=== PATIENT | female | born 1995 | race Caucasian/White ===

== ENCOUNTER 2017-05-07 15:22 | Inpatient (IN) | payer OTHER ==
[~2017-05-07] VITALS: Ht 147.3 cm; Wt 78.4 kg
[~2017-05-07 15:22] MED LIST: CRY28 PO; ENAL20TA PO; HYDR12.56 PO; LEVO75TA5 PO; SNG10 PO
[2017-05-07] MEDS ORDERED: SODIUM CHLORIDE 0.9% 1000ML 1,000 ML IV SCH (15:45)
[2017-05-07] MEDS ORDERED: LEVO88TA3 PO (16:01)
[2017-05-07] MEDS ORDERED: METO25TA56 PO (16:01)
[2017-05-07 16:23] LABS: BASO % 0.3 %; BASO ABS # 0.04 K/uL (0-0.2); COMPLETE YES; EOS % 0.6 %; HEMATOCRIT 45.7 % (37-47); IG% 0.9 %; LYMPH % 12.6 %; LYMPH ABS # 1.63 K/uL (1.2-3.4); MEAN CELL VOLUME 85.7 fL (80-100); MEAN CORPUSCULAR HEMOGLOBIN 29.1 pg (25-34); MEAN CORPUSCULAR HGB CONC 33.9 g/dl (32-36); MEAN PLATELET VOLUME 9.3 fL (7.4-10.4); MONO % 7.2 %; NEUT % 78.4 %; PLATELET COUNT 425 K/uL (130-400); RED BLOOD COUNT 5.33 M/uL (4.2-5.4); WHITE BLOOD COUNT 12.93 K/uL (4.8-10.8)
[2017-05-07 16:26] LABS: URINE APPEARANCE CLEAR (CLEAR); URINE BILIRUBIN NEG (NEG); URINE COLOR YELLOW; URINE EPITHELIAL CELL AUTO 0-5 /lpf (0-5); URINE NITRITE NEG (NEG); URINE SPECIFIC GRAVITY 1.006 (1.000-1.030); UROBILINOGEN NEG (NEG); ZZUR CULT IF INDIC CLEAN CATCH NO
[2017-05-07 16:27] LABS: MANUAL MICROSCOPIC REQUIRED? NO; REVIEW REQ? NO
[2017-05-07 16:33] LABS: PARTIAL THROMBOPLASTIN RATIO 1.5; PROTHROMBIN TIME (PATIENT) 10.5 SECONDS (9.0-12.0)
--- NOTE | 2017-05-07 16:36 | DIAGNOSTIC IMAGING REPORT ---
CT HEAD WITHOUT CONTRAST (CT) CLINICAL HISTORY: Stroke COMPARISON STUDY: 06/07/2015 TECHNIQUE: Axial CT of the brain is performed from the vertex to the skull base. IV contrast was not administered for this examination. A dose lowering technique was utilized adhering to the principles of ALARA. CT DOSE: 537.48 mGy.cm FINDINGS: No intra or extra-axial mass lesions are visualized. There is no acute hemorrhage. There is no midline shift. 3 shunt catheters are visualized. The right parieto-occipital shunt catheter terminates in the expected location of the right frontal horn. The left parietal occipital shunt catheter terminates either within the third ventricle or thalamus. There is a left frontal shunt catheter which terminates either within the left lateral ventricle or pelvis. There are slitlike ventricles, and the patient may be over shunted. Clinical correlation this regard is advocated. Since the prior study, the patient has developed hypodensity within the left centrum semiovale. IMPRESSION: 1. Marked interval decrease in the size of the ventricles, which are currently slitlike. This could indicate over shunting. Clinical correlation this regard is advocated. 2. Interval development of left hemispheric hypodensity, predominantly involving the left centrum semiovale but extending to the left frontoparietal cortex. This a nonspecific finding which could be ischemic. An MRI could be obtained in follow-up as deemed clinically indicated. Electronically signed by: Félix Dos Santos M.D. 05/07/2017 4:34 PM Dictated Date/Time: 05/07/2017 4:23 PM
[2017-05-07 16:41] LABS: BLOOD UREA NITROGEN 10 mg/dl (7-18); BUN/CREATININE RATIO 8.6 (10-20); CALCIUM 9.4 mg/dl (8.5-10.1); CARBON DIOXIDE 22 mmol/L (21-32); CHLORIDE 108 mmol/L (98-107); GLUCOSE 99 mg/dl (70-99); POTASSIUM 4.4 mmol/L (3.5-5.1); SODIUM 138 mmol/L (136-145)
--- NOTE | 2017-05-07 17:04 | EMERGENCY ROOM VISIT NOTE ---
History First contact with patient: 15:34 Chief Complaint: NEURO SYMPTOMS Stated Complaint: FACE PROBLEM Nursing Triage Summary: Patient c/o of right facial drooping since Thursday. Patient has hx of neurofibromitosis and has 2 brain shunts for hydrocephalus. Denies hx. of Stein's palsy History of Present Illness The patient is a 22 year old female who presents to the Emergency Room via private vehicle accompanied by parents with complaints of "face problems". The parents state that the patient developed right sided facial droop back in November, but had resolved. This past Thursday the patient woke up, and the right side of her face was completely drooped. Her smile was asymmetric. They became concerned, and no correspondence via email with Noris Salas. The parents state that they were recommended to follow-up with the PCP, or if worse to the ER. They stated MRI was scheduled today, however the insurance company declined the MRI. They then came here for further evaluation and management. There is associated nausea. The patient denies any fevers, chills, chest pain, shortness of breath, neck pain. Review of Systems A complete 10-point Review of Systems was discussed with the patient, with pertinent positives and negatives listed in the History of Present Illness. All remaining Review of Systems questions can be considered negative unless otherwise specified. Past Medical/Surgical History Medical Problems: (1) HTN (hypertension) (2) Hydrocephalus (3) Neurofibromatosis (4) Stroke Surgical Problems: (1) S/P CONSULTANT shunt Family History Cancer Heart disease Social History Smoking Status: Never Smoker Alcohol Use: none Marital Status: single Housing Status: lives with family Occupation Status: unemployed Current/Historical Medications Scheduled Enalapril Maleate (Enalapril Maleate), 20 MG PO DAILY Ethinyl Estradiol/Norgestrel (Cryselle-28), 1 TAB PO DAILY Levothyroxine Sodium (Levothyroxine Sodium), 88 MCG PO QAM Metoprolol Tartrate (Lopressor) (Lopressor), 25 MG PO BID Scheduled PRN Montelukast Sod (Montelukast Sodium), 10 MG PO DAILY PRN for ALLERGIES Physical Exam Vital Signs Date Time Temp Pulse Resp B/P (MAP) Pulse Ox O2 Delivery O2 Flow Rate FiO2 05/07/17 19:39 128 17 121/82 96 Room Air 05/07/17 17:31 137/87 05/07/17 17:22 128 17 128/82 96 Room Air 05/07/17 17:01 122/83 05/07/17 16:52 125 20 96 05/07/17 16:41 121 05/07/17 16:39 121 18 114/83 98 Room Air 05/07/17 16:37 114/83 05/07/17 16:00 98 Room Air 05/07/17 15:28 36.6 124 18 127/74 98 Room Air Physical Exam VITAL SIGNS - Vital signs and nursing notes were reviewed. GENERAL -22-year-old female appearing her stated age who is in no acute distress. Communicates well with provider and answers questions appropriately. SKIN - Without rashes. No petechial rash. HEAD - NC/AT. EYES - PERRL with EOMI bilaterally. Sclera anicteric. Palpebral conjunctiva pink and moist with no injection noted. There is asymmetric eyebrow lifting. The right eyebrow does not raise. EARS - No deformities of external structures noted on gross examination bilaterally. No pain elicited with palpation of the tragus bilaterally. External auditory canals without discharge or otorrhea. Tympanic membranes pearly ramires without retraction or bulging. No fluid or purulent material visualized behind the TM. Handle of malleus, umbo, cone of light, pars tensa/ flaccid all easily visualized. NOSE - Midline and without cyanosis. No epistaxis or purulent drainage noted. Septum midline without deviation or septal hematoma noted. MOUTH/OROPHARYNX - Without perioral cyanosis. Buccal mucosa pink and moist and without leukoplakia. Tongue midline with equal elevation of palate bilaterally. No tonsillar hypertrophy, erythema, or exudates noted. Fair dentition noted. There is right sided mouth drooping noted. There is asymmetric smiling, with normal smile on the left. NECK - Neck with FROM. Supple to palpation. No lymphadenopathy noted. No nuchal rigidity. No meningismus. LUNGS - Chest wall symmetric without accessory muscle use, intercostals retractions, or central cyanosis. Normal vesicular breath sounds CTA B/L. No wheezes, rales, or rhonchi appreciated. CARDIAC - RRR with S1/S2. No murmur, rubs, or gallops appreciated. EXTREMITIES - No clubbing or peripheral cyanosis. No pretibial edema present. +5 /5 strength noted in UE/LE bilaterally. No neurovascular deficits appreciated upon examination. NEUROLOGIC - Cranial nerves II through XII grossly intact, except the right facial nerve. Sensory intact to light touch throughout. PSYCH - A&O.Pt is very pleasant and interacts well with examiner. Medical Decision & Procedures ER Provider Diagnostic Interpretation: CT HEAD WITHOUT CONTRAST (CT) CLINICAL HISTORY: Stroke COMPARISON STUDY: 06/07/2015 TECHNIQUE: Axial CT of the brain is performed from the vertex to the skull base. IV contrast was not administered for this examination. A dose lowering technique was utilized adhering to the principles of ALARA. CT DOSE: 537.48 mGy.cm FINDINGS: No intra or extra-axial mass lesions are visualized. There is no acute hemorrhage. There is no midline shift. 3 shunt catheters are visualized. The right parieto-occipital shunt catheter terminates in the expected location of the right frontal horn. The left parietal occipital shunt catheter terminates either within the third ventricle or thalamus. There is a left frontal shunt catheter which terminates either within the left lateral ventricle or pelvis. There are slitlike ventricles, and the patient may be over shunted. Clinical correlation this regard is advocated. Since the prior study, the patient has developed hypodensity within the left centrum semiovale. IMPRESSION: 1. Marked interval decrease in the size of the ventricles, which are currently slitlike. This could indicate over shunting. Clinical correlation this regard is advocated. 2. Interval development of left hemispheric hypodensity, predominantly involving the left centrum semiovale but extending to the left frontoparietal cortex. This a nonspecific finding which could be ischemic. An MRI could be obtained in follow-up as deemed clinically indicated. Electronically signed by: Félix Dos Santos M.D. 05/07/2017 4:34 PM Dictated Date/Time: 05/07/2017 4:23 PM BRAIN COMBO CLINICAL HISTORY: Right facial droop neurological compromise COMPARISON STUDY: 05/29/2006. CT 05/07/2017 TECHNIQUE: Utilizing a 1.5 Ursula magnet and dedicated coil, multiplanar, multiecho imaging of the brain was performed pre and postcontrast administration. IV administration of 7.5 mL of Gadavist contrast was uneventful. FINDINGS: Diffusion-weighted images show several small petechial foci of acute ischemic frame changer the left parietal convexity. This is best seen transaxial image 17 and a clinically transaxial image 19. There are 4 components of moderate chronic small vessel change. The ventricular system again is decompressed. The patient demonstrates considerable cystic change in the region of the REMEDIATION CONSULTANT all this is diminished from the prior exam. There is no midline shift. A postprocedural ventricular decompression is again noted. Postcontrast images are negative for an enhancing process. Components of chronic small vessel change are present. IMPRESSION: Several small punctate foci of acute ischemic change left parietal cortex. No evidence for midline shift. Ventricular system is now decompressed. No abnormal postcontrast enhancement The above report was generated using voice recognition software. It may contain grammatical, syntax or spelling errors. Electronically signed by: Saji Rivero M.D. 05/07/2017 6:27 PM Dictated Date/Time: 05/07/2017 6:22 PM Laboratory Results 05/07/17 16:00 Red Blood Count 5.33, Mean Corpuscular Volume 85.7, Mean Corpuscular Hemoglobin 29.1, Mean Corpuscular Hemoglobin Concent 33.9, Mean Platelet Volume 9.3, Neutrophils (%) (Auto) 78.4, Lymphocytes (%) (Auto) 12.6, Monocytes (%) (Auto) 7.2, Eosinophils (%) (Auto) 0.6, Basophils (%) (Auto) 0.3, Neutrophils # (Auto) 10.13, Lymphocytes # (Auto) 1.63, Monocytes # (Auto) 0.93, Eosinophils # (Auto) 0.08, Basophils # (Auto) 0.04 05/07/17 16:00 Test 05/07/17 16:00 05/07/17 16:09 White Blood Count 12.93 K/uL (4.8-10.8) Red Blood Count 5.33 M/uL (4.2-5.4) Hemoglobin 15.5 g/dL (12.0-16.0) Hematocrit 45.7 % (37-47) Mean Corpuscular Volume 85.7 fL (80-100) Mean Corpuscular Hemoglobin 29.1 pg (25-34) Mean Corpuscular Hemoglobin Concent 33.9 g/dl (32-36) Platelet Count 425 K/uL (130-400) Mean Platelet Volume 9.3 fL (7.4-10.4) Neutrophils (%) (Auto) 78.4 % Lymphocytes (%) (Auto) 12.6 % Monocytes (%) (Auto) 7.2 % Eosinophils (%) (Auto) 0.6 % Basophils (%) (Auto) 0.3 % Neutrophils # (Auto) 10.13 K/uL (1.4-6.5) Lymphocytes # (Auto) 1.63 K/uL (1.2-3.4) Monocytes # (Auto) 0.93 K/uL (0.11-0.59) Eosinophils # (Auto) 0.08 K/uL (0-0.5) Basophils # (Auto) 0.04 K/uL (0-0.2) RDW Standard Deviation 42.2 fL (36.4-46.3) RDW Coefficient of Variation 13.4 % (11.5-14.5) Immature Granulocyte % (Auto) 0.9 % Immature Granulocyte # (Auto) 0.12 K/uL (0.00-0.02) Prothrombin Time 10.5 SECONDS (9.0-12.0) Prothromb Time International Ratio 1.0 (0.9-1.1) Activated Partial Thromboplast Time 39.0 SECONDS (21.0-31.0) Partial Thromboplastin Ratio 1.5 Anion Gap 8.0 mmol/L (3-11) Est Creatinine Clear Calc Drug Dose 72.9 ml/min Estimated GFR () 82.0 Estimated GFR (Non- 70.7 BUN/Creatinine Ratio 8.6 (10-20) Calcium Level 9.4 mg/dl (8.5-10.1) Magnesium Level 2.0 mg/dl (1.8-2.4) Total Bilirubin 0.2 mg/dl (0.2-1) Direct Bilirubin < 0.1 mg/dl (0-0.2) Aspartate Amino Transf (AST/SGOT) 12 U/L (15-37) Alanine Aminotransferase (ALT/SGPT) 23 U/L (12-78) Alkaline Phosphatase 78 U/L (45-117) Total Creatine Kinase 30 U/L (26-192) Creatine Kinase MB < 0.5 ng/ml (0.5-3.6) Creatine Kinase MB Ratio (0-3.0) Troponin I < 0.015 ng/ml (0-0.045) Total Protein 7.7 gm/dl (6.4-8.2) Albumin 4.0 gm/dl (3.4-5.0) Thyroid Stimulating Hormone (TSH) 2.410 uIu/ml (0.300-4.500) Lyme Disease IgG Antibody NEG (NEG) Lyme Disease IgM Antibody NEG (NEG) Urine Color YELLOW Urine Appearance CLEAR (CLEAR) Urine pH 7.0 (4.5-7.5) Urine Specific [place] 1.006 (1.000-1.030) Urine Protein NEG (NEG) Urine Glucose (UA) NEG (NEG) Urine Ketones NEG (NEG) Urine Occult Blood 3+ (NEG) Urine Nitrite NEG (NEG) Urine Bilirubin NEG (NEG) Urine Urobilinogen NEG (NEG) Urine Leukocyte Esterase NEG (NEG) Urine WBC (Auto) 1-5 /hpf (0-5) Urine RBC (Auto) 10-30 /hpf (0-4) Urine Hyaline Casts (Auto) 0 /lpf (0-5) Urine Epithelial Cells (Auto) 0-5 /lpf (0-5) Urine Bacteria (Auto) NEG (NEG) Medications Administered Medications (Trade) Dose Ordered Sig/Colt Route Start Time Stop Time Status Last Admin Dose Admin Sodium Chloride 1,000 ml @ 50 mls/hr Q20H IV 05/07/17 15:45 05/07/17 19:58 DC 05/07/17 16:15 50 MLS/HR Aspirin (Aspirin Chew) 324 mg NOW STAT PO 05/07/17 19:46 05/07/17 19:49 DC 05/07/17 20:15 324 MG Sodium Chloride 1,000 ml @ 500 mls/hr Q2H STAT IV 05/07/17 19:57 05/07/17 21:56 DC 05/07/17 20:15 500 MLS/HR Medical Decision Patient was seen and evaluated as above. After obtaining a thorough history and physical examination IV access was initiated, and the above workup was performed. The patient presents to us today with right-sided facial droop. They state that this started on Thursday. There apparently was correspondence via email with [facility]. [facility], [facility]. The patient was directed to the family doctor, and then had an MRI scheduled for today. Insurance company apparently declined this MRI, her symptoms have worsened therefore they came here for evaluation. On my examination, there is exquisite right-sided facial droop. Whether or not this is coming for Stein's palsy is not clear on examination, therefore I will not delay and a stroke workup was initiated. CT of the head reveals marked interval decrease in size of the ventricles, and interval development of left hemispheric hypodensity. An MRI was then recommended as clinically indicated. I discussed the case with my attending, and subsequently the on-call neurologist. I spoke with Dr. Workman, of [facility] neurology regarding the case. This phone call took place at 5:08 PM. I discussed the CT findings with Dr. Workman. She recommended pursuing the MRI. I then spoke with Dr. Workman and Noris Salas here, and Dr. Workman reviewed the images from the [employer] system, indicating that the shunt/ventricle changes appeared to be since her previous surgery. The new hypodensity at this time was unclear. She felt that the facial droop may be secondary to Shelley palsy based upon my description of the patients examination. The MRI was pursued with and without contrast. This was after verifying with the radiologist that this was the most appropriate study. MRI was obtained, with results as above. I then called Dr. Workman back, at 7:01 PM with the MRI results indicating a new foci of acute ischemic change . She noted that she would review with prior studies to see if this new finding of several small punctate foci of acute ischemic change was new. I was then called back at 7:37 PM, and she indicated that this indeed was likely new. She recommend a carotid ultrasound, coagulation workup, as well as aspirin with admission to our facility and the patient would be seen by neurology tomorrow. I then discussed the case with the hospitalist, who accepted the admission. Patient's symptoms have been ongoing for approximately 2 days, therefore TPA is contraindicated. EKG reveals sinus tachycardia, rate of 119 bpm. No ectopy or ischemic change. In the evaluation and treatment this patient the following differential diagnoses were entertained: CVA, TIA, Stein's palsy, sepsis, among others. Impression Primary Impression: Stroke Departure Information Referrals Ria Larson M.D. (PCP) Patient Instructions My [facility]
[2017-05-07 17:11] LABS: LYME DISEASE AB IGG NEG (NEG); LYME DISEASE AB IGM NEG (NEG)
[2017-05-07] MEDS ORDERED: GADAVIST IV PRN (18:15)
--- NOTE | 2017-05-07 18:28 | DIAGNOSTIC IMAGING REPORT ---
BRAIN COMBO CLINICAL HISTORY: Right facial droop neurological compromise COMPARISON STUDY: 05/29/2006. CT 05/07/2017 TECHNIQUE: Utilizing a 1.5 Ursula magnet and dedicated coil, multiplanar, multiecho imaging of the brain was performed pre and postcontrast administration. IV administration of 7.5 mL of Gadavist contrast was uneventful. FINDINGS: Diffusion-weighted images show several small petechial foci of acute ischemic change management the left parietal convexity. This is best seen transaxial image 17 and a clinically transaxial image 19. There are 4 components of moderate chronic small vessel change. The ventricular system again is decompressed. The patient demonstrates considerable cystic change in the region of the DOPE MIXER all this is diminished from the prior exam. There is no midline shift. A postprocedural ventricular decompression is again noted. Postcontrast images are negative for an enhancing process. Components of chronic small vessel change are present. IMPRESSION: Several small punctate foci of acute ischemic change left parietal cortex. No evidence for midline shift. Ventricular system is now decompressed. No abnormal postcontrast enhancement The above report was generated using voice recognition software. It may contain grammatical, syntax or spelling errors. Electronically signed by: Saji Rivero M.D. 05/07/2017 6:27 PM Dictated Date/Time: 05/07/2017 6:22 PM
[2017-05-07] MEDS ORDERED: ASPIRIN 324 MG CHEW PO STA (19:46)
[2017-05-07] MEDS ORDERED: SODIUM CHLORIDE 0.9% 1000ML 1,000 ML IV STA (19:57)
[2017-05-07] MEDS ORDERED: MONTELUKAST SOD 10 MG TAB PO PRN (20:00)
[2017-05-07 20:28] LABS: ALKALINE PHOSPHATASE 78 U/L (45-117); ALT/SGPT 23 U/L (12-78); AST/SGOT 12 U/L (15-37)
[2017-05-07] MEDS ORDERED: MoRPHine SULFATE 2 MG/ML CARP IV PRN (20:45)
[2017-05-07] MEDS ORDERED: ONDANSETRON INJ 2 MG/ML 2 ML VIAL IV PRN (20:45)
[2017-05-07] MEDS ORDERED: PHARMACIST DISCHARGE MED REC CONSULT PRN (20:45)
[2017-05-07] MEDS ORDERED: ACETAMINOPHEN 325 MG TAB PO PRN (20:45)
[2017-05-07] MEDS ORDERED: OXYCODONE/ACETAMINOPHEN 5-325 TAB PO PRN (20:45)
[2017-05-07] MEDS ORDERED: NITROGLYCERIN 0.4 MG SL PER TAB CHARGE SL PRN (20:45)
[2017-05-07 21:58] VITALS: BP 118/70; PULSE 135; TEMP 37.1; O2SAT 96; Ht 147.3 cm; Wt 78.4 kg
[2017-05-07] MEDS ORDERED: ARTIFICIAL TEARS OP SOLN OPR SCH ×2 (22:00)
[2017-05-07] MEDS ORDERED: SODIUM CHLORIDE 0.9% 1000ML 1,000 ML IV ONE (22:15)
--- NOTE | 2017-05-07 22:29 | DIAGNOSTIC IMAGING REPORT ---
ULTRASOUND OF THE CAROTID ARTERIES CLINICAL HISTORY: Acute stroke. Hx neurofibromatosis COMPARISON STUDY: None. TECHNIQUE: Real-time, grayscale, and color Doppler sonography of the carotid arteries was performed. Imaging reviewed in the transverse and longitudinal planes. NASCET criteria was utilized for stenosis calcification. FINDINGS: There is no significant atherosclerotic plaque present . The peak systolic velocity within the right internal carotid artery is 108 cm/sec. The systolic velocity ratio of right internal to common carotid artery is 0.5. The peak systolic velocity within the left internal carotid artery is 92 cm/sec. The systolic velocity ratio left internal to common carotid artery is 0.5. Antegrade flow is seen in the vertebral arteries. The external carotid arteries are patent. Blood pressure in the right arm measured 131 mm/Hg. Blood pressure in the left arm measured 118 mm/Hg. IMPRESSION: No evidence of hemodynamically significant carotid stenosis. Electronically signed by: Félix Dos Santos M.D. 05/07/2017 10:28 PM Dictated Date/Time: 05/07/2017 10:25 PM
[2017-05-07] MEDS ORDERED: METOPROLOL TARTRATE 25 MG TAB PO ONE (22:40)
[2017-05-07] MEDS: ARTIFICIAL TEARS OP OINT 3.5 GM TUBE OPR SCH (23:06)
[2017-05-07] MEDS: ENOXAPARIN 40 MG/0.4 ML SYR SC SCH (23:07)
[2017-05-07 23:34] VITALS: BP 113/75; PULSE 112; TEMP 37.1; O2SAT 96
[2017-05-08] MEDS ORDERED: SODIUM CHLORIDE 0.9% 1000ML 1,000 ML IV SCH
[2017-05-08 03:49] VITALS: BP 112/73; PULSE 102; TEMP 37.1; O2SAT 98
--- NOTE | 2017-05-08 04:08 | HISTORY & PHYSICAL EXAMINATION ---
DATE OF ADMISSION: 05/07/2017 PRIMARY CARE PHYSICIAN: Dr. Larson. CHIEF COMPLAINT: Right facial droop. HISTORY OF PRESENT ILLNESS: History obtained from patient, records, family. Medical history significant for neurofibromatosis type I, obstructive hydrocephalus status post shunt placement/revision, hypertension, hypothyroidism , chronic tachycardia secondary to autonomic dysfunction as per records. Patient was 1 years old when she was found to have obstructive hydrocephalus. Subsequently had shunt placement at [facility]. Multiple shunt revisions the last one was at [facility] about a year ago by Dr. Molina. A few months ago, she had transient right-sided facial asymmetry. MRI of the brain and face from January 2017 as follows : 1.. Interval reduction of hydrocephalus. Stable position of bilateral PAINT ROLLER ASSEMBLER shunt catheters as described above. 2. With reduction of hydrocephalus there is improved visualization of a cystic lesion adjacent to the superior margin of the quadrigeminal plate and posterior margin of the left thalamus at the midline, with partial effacement of the 3rd ventricle. 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 3. Slight interval decrease in size of the heterogeneous T2 hyperintense lesion in the right caudal thalamic groove, which may represent a focus of dysplasia. A linear region of T2 hyperintensity in the left cerebral peduncle extending into the posterior limb of the internal capsule is slightly more conspicuous, and may reflect changes in the myelin pattern associated with NF 1 or a focus of dysplasia, and attention could be directed this finding at the time of follow-up imaging to exclude progression. There is no enhancement of these lesions. 4. Interval increase in T2 hyperintensity with mild volume loss of the parietal white matter and adjacent cortex, of uncertain etiology. This is new since the MRI from 05/28/2015. If an outside MRI has been performed in the meantime, and could be scanned into our PACS, a comparison addendum will be provided. Otherwise, a short interval follow-up brain MRI with contrast is recommended in 3 months to exclude progression. 5. MRI of the face shows no abnormality of the brainstem or cranial nerves, including the course of the facial nerve. Two days ago, the patient was noted to have recurrence of facial droop in involving the right half of her face. Incomplete R eyelid closure noted. No headache, no nausea, no vomiting, no chest pain, no shortness of breath. Patient's mother in correspondence with [facility]. As per correspondence with patient's mother, Neurology recommended PCP visit, and possible Neurology appointment after. As per outpatient note, mother advised to take patient to the emergency room if she thought something more urgent was needed. Patient seen at PCPs office. Brain MRI recommended. Patient eventually brought by family to the Emergency Room. Brain MRI showed several small punctate foci of ischemia left parietal cortex. No evidence of midline shift; decompressed ventricular system. Patient given ASA in the Emergency Room as per Neurology recommendation. MEDICAL HISTORY: As above. Chronic tachycardia attributed to autonomic dysfunction as per cardiology eval. SURGERIES: PAINT ROLLER ASSEMBLER shunt placement. HOME MEDICATIONS: Enalapril, Norgestrel, levothyroxine, Lopressor. ALLERGIES: No known drug allergies. FAMILY HISTORY: Arthritis, asthma, heart disease, high blood pressure, uterine cancer, thyroid, kidney stones. No strokes. PERSONAL SOCIAL HISTORY: Nonsmoker, no chronic intake of alcoholic beverages. Unemployed. Lives with parents. REVIEW OF SYSTEMS: As per HPI, all other ROS negative. PHYSICAL EXAMINATION: VITAL SIGNS: Blood pressure was noted to be 137/87, pulse rate 120, RR 17, temperature 36.6, sats 96 on room air. GENERAL: Noted to be obese, no respiratory distress, some restlessness. SKIN: Normal color. HEENT: [place] palpebral conjunctivae, dry mucosa. Facial asymmetry involving R half the face; incomplete eyelid closure right. NECK: Short neck. LUNGS: Decreased breath sounds. HEART: Tachycardic. ABDOMEN: Some distention, NT EXTREMITIES: No edema, no tenderness. NEUROLOGIC: No gross focality except for right facial asymmetry. LABS: Hemoglobin was noted to be 15.5, hematocrit 41 white blood cells 12.9, platelets 475. Sodium 140, potassium 4.4, chloride 108, CO2 of 22, BUN 10, creatinine 1.1, glucose was noted to be 99. Lyme screen negative MRI brain as above Carotid artery ultrasound : no significant atherosclerotic plaque. EKG as per my interpretation, rate 120, sinus tachycardia, no ischemia. ASSESSMENT: 1. Acute stroke in the young ? Possibly embolic (punctate foci on MRI) presentation somewhat atypical with total paralysis of the right half of the face (mimics Stein's palsy) possible hypercoagulable state. 2. Hypertension, stable. 3. Chronic tachycardia secondary to autonomic dysfunction as per cardiology eval. 4. hx obstructive hydrocephalus sp shunt placement/revision. 5. Hypothyroidism, euthyroid as of today's TSH. PLAN: PCU, neuro checks ASA for stroke prevention 2D echo, hypercoagulable workup Check lipid profile Further eval/mx of stroke as per Neurology. Dr. Workman already aware of patient's admission. DVT prophylaxis, Lovenox subQ. Full code. MTDD
[2017-05-08] MEDS: LEVOTHYROXINE 88 MCG TAB PO SCH (05:50)
[2017-05-08] MEDS ORDERED: PERFLUTREN LIPID MICROSPHERE (DEFINITY) IV ONE (07:38)
[2017-05-08 07:53] VITALS: BP 135/95; PULSE 122; TEMP 36.5; O2SAT 97
[2017-05-08] MEDS: ASPIRIN 325 MG ECTAB PO SCH (08:08)
[2017-05-08 08:11] LABS: BASO % 0.2 %; BASO ABS # 0.02 K/uL (0-0.2); COMPLETE YES; EOS % 0.9 %; HEMATOCRIT 44.9 % (37-47); IG% 1.6 %; LYMPH % 17.1 %; LYMPH ABS # 1.59 K/uL (1.2-3.4); MEAN CELL VOLUME 85.7 fL (80-100); MEAN CORPUSCULAR HEMOGLOBIN 28.4 pg (25-34); MEAN CORPUSCULAR HGB CONC 33.2 g/dl (32-36); MEAN PLATELET VOLUME 9.1 fL (7.4-10.4); MONO % 8.1 %; NEUT % 72.1 %; PLATELET COUNT 382 K/uL (130-400); RED BLOOD COUNT 5.24 M/uL (4.2-5.4); WHITE BLOOD COUNT 9.29 K/uL (4.8-10.8)
[2017-05-08 08:49] LABS: BUN/CREATININE RATIO 13.5 (10-20); CALCIUM 9.3 mg/dl (8.5-10.1); CREATININE 0.69 mg/dl (0.60-1.20); POTASSIUM 3.9 mmol/L (3.5-5.1)
--- NOTE | 2017-05-08 08:50 | NEUROLOGY CONSULTATION ---
DATE OF CONSULTATION: 05/07/2017 Bri is known to us. 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 As I recall, several months ago, her mother noted some mild weakness of the left lower face with some facial synkinesis. Imaging did not reveal an etiology. There were no lesions in the face related to her NF or brain or brainstem which accounted for it and it improved. Apparently, over the last several days, they had noted some progressive right-sided facial weakness. She had just been imaged several weeks ago to follow up on a radiographic finding, the imaging was stable. ER contacted us and a CAT scan showed possible over shunting as well as a hypodensity in the left hemisphere. We reviewed her outpatient MRI and the inpatient CT and they appeared grossly unchanged. An MRI was performed and shows a tiny area of acute ischemia in the high left parietal cortex. I had spoken to the physician's language assistant in Emergency Room while the patient was in MRI. What he described was clearly right central facial weakness which would not be explained by the patient's imaging finding. I compared both old and new images, I do see these tiny areas of diffusion-weighted abnormality that I did not see on the outpatient imaging. LABORATORY DATA: Reviewed her labs. Her white count is 12.9. Her PTT is elevated at 39. Chemistry profile noncontributory. Hypercoagulable state workup pending. Lyme titer negative. IMPRESSION: 1. 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 It failed to show compression of the right 7th nerve. 2. Patients with neurofibromatosis type 1 can rarely have vascular anomalies, dissections. Recommend a carotid ultrasound, then followed tomorrow by an MRA of the head and neck or a CTA of the head and neck, echocardiography with bubble study, telemetric monitoring, assessment of blood pressure, cholesterol and blood sugar. Antiplatelet therapy with aspirin. I spoke to the patient's mother over the phone, who asked some questions about whether or not a surgeon should be made aware. I do not think that is an urgent matter. She also wondered if there would be utility in getting a second opinion with the [facility]. I indicated that I think she should wait for the first opinion. She may then have a second opinion if she so desires. Dr. Washington will see the patient in the morning. MTDD
[2017-05-08 08:52] LABS: CHOLESTEROL/HDL RATIO 5.9
[2017-05-08] MEDS ORDERED: METOPROLOL TARTRATE 25 MG TAB PO SCH (09:00)
[2017-05-08] MEDS ORDERED: NURSING VERBAL MED ORDER ONE ×2 (09:15→10:15)
[2017-05-08] MEDS ORDERED: MONTELUKAST SOD 10 MG TAB PO SCH (10:30)
[2017-05-08 11:07] VITALS: BP 124/85; PULSE 120; TEMP 36.6; O2SAT 97
--- NOTE | 2017-05-08 11:23 | Progress Note ---
Medicine Progress Note Date & Time of Visit: May 08, 2017 at 10:59. Subjective 22 yo F with NF Type I presents with acute stroke. No TPA given, residual R facial paralysis. -pt feeling well this morning after eating some breakfast -denies any pain -denies visual changes -reports R eye irritation not improved on Refresh tears -no issues moving arms/legs, no difficulty swallowing, articulating or finding words. Denies decreased sensation Objective Last 8 Hrs Date Time Temp Pulse Resp B/P (MAP) Pulse Ox O2 Delivery O2 Flow Rate FiO2 05/08/17 08:00 Room Air 05/08/17 07:53 36.5 122 20 135/95 (108) 97 Room Air 05/08/17 04:00 Room Air 05/08/17 03:49 37.1 102 19 112/73 (86) 98 Room Air Physical Exam: GEN: WNWD, in no acute distress, alert and appropriate, sitting in chair and eating bfast. Ambulated around room wo difficulty HEENT: NC/AT, PERRL, mild redness to conjunctivae in R eye. No drainage noted. CARDIO: tachy rate, S1/2 heard without m/g/r LUNGS: CTA bilaterally, no crackles, rales or wheezes, good diaphragmatic excursion ABD: soft, non-tender, non-distended, no rebound or guarding, +BS EXTREMITY: RP and DP palpable 2+ bilat, no LE swelling or edema, extremities are warm and well-perfused NEURO: CN 2-12 intact except for CN 7 (patient cannot raise eyebrows, R facial paralysis-sensation intact), sensation intact throughout, coordination intact ( finger to nose, pt ambulating without difficulty) (reflexes) knee 2/4 bilat MUSC: 5/5 strength throughout, no focal deficits except for facial nerve mentioned above. SKIN: warm and dry Laboratory Results: 05/08/17 07:59 Red Blood Count 5.24, Mean Corpuscular Volume 85.7, Mean Corpuscular Hemoglobin 28.4, Mean Corpuscular Hemoglobin Concent 33.2, Mean Platelet Volume 9.1, Neutrophils (%) (Auto) 72.1, Lymphocytes (%) (Auto) 17.1, Monocytes (%) (Auto) 8.1, Eosinophils (%) (Auto) 0.9, Basophils (%) (Auto) 0.2, Neutrophils # (Auto) 6.70, Lymphocytes # (Auto) 1.59, Monocytes # (Auto) 0.75, Eosinophils # (Auto) 0.08, Basophils # (Auto) 0.02 05/08/17 07:59 Test 05/07/17 16:00 05/07/17 16:09 05/07/17 20:17 05/07/17 21:19 Prothrombin Time 10.5 SECONDS (9.0-12.0) Prothromb Time International Ratio 1.0 (0.9-1.1) Activated Partial Thromboplast Time 39.0 SECONDS (21.0-31.0) Partial Thromboplastin Ratio 1.5 Magnesium Level 2.0 mg/dl (1.8-2.4) Total Bilirubin 0.2 mg/dl (0.2-1) Direct Bilirubin < 0.1 mg/dl (0-0.2) Aspartate Amino Transf (AST/SGOT) 12 U/L (15-37) Alanine Aminotransferase (ALT/SGPT) 23 U/L (12-78) Alkaline Phosphatase 78 U/L (45-117) Total Creatine Kinase 30 U/L (26-192) Creatine Kinase MB < 0.5 ng/ml (0.5-3.6) Creatine Kinase MB Ratio (0-3.0) Troponin I < 0.015 ng/ml (0-0.045) Total Protein 7.7 gm/dl (6.4-8.2) Albumin 4.0 gm/dl (3.4-5.0) Thyroid Stimulating Hormone (TSH) 2.410 uIu/ml (0.300-4.500) Lyme Disease IgG Antibody NEG (NEG) Lyme Disease IgM Antibody NEG (NEG) Urine Color YELLOW Urine Appearance CLEAR (CLEAR) Urine pH 7.0 (4.5-7.5) Urine Specific Bode 1.006 (1.000-1.030) Urine Protein NEG (NEG) Urine Glucose (UA) NEG (NEG) Urine Ketones NEG (NEG) Urine Occult Blood 3+ (NEG) Urine Nitrite NEG (NEG) Urine Bilirubin NEG (NEG) Urine Urobilinogen NEG (NEG) Urine Leukocyte Esterase NEG (NEG) Urine WBC (Auto) 1-5 /hpf (0-5) Urine RBC (Auto) 10-30 /hpf (0-4) Urine Hyaline Casts (Auto) 0 /lpf (0-5) Urine Epithelial Cells (Auto) 0-5 /lpf (0-5) Urine Bacteria (Auto) NEG (NEG) Bedside Lactic Acid Venous 1.08 mmol/L (0.90-1.70) Fibrinogen 415 mg/dl (184-400) Test 05/07/17 21:20 05/08/17 07:59 Lactic Acid Level 1.2 mmol/L (0.4-2.0) White Blood Count 9.29 K/uL (4.8-10.8) Red Blood Count 5.24 M/uL (4.2-5.4) Hemoglobin 14.9 g/dL (12.0-16.0) Hematocrit 44.9 % (37-47) Mean Corpuscular Volume 85.7 fL (80-100) Mean Corpuscular Hemoglobin 28.4 pg (25-34) Mean Corpuscular Hemoglobin Concent 33.2 g/dl (32-36) Platelet Count 382 K/uL (130-400) Mean Platelet Volume 9.1 fL (7.4-10.4) Neutrophils (%) (Auto) 72.1 % Lymphocytes (%) (Auto) 17.1 % Monocytes (%) (Auto) 8.1 % Eosinophils (%) (Auto) 0.9 % Basophils (%) (Auto) 0.2 % Neutrophils # (Auto) 6.70 K/uL (1.4-6.5) Lymphocytes # (Auto) 1.59 K/uL (1.2-3.4) Monocytes # (Auto) 0.75 K/uL (0.11-0.59) Eosinophils # (Auto) 0.08 K/uL (0-0.5) Basophils # (Auto) 0.02 K/uL (0-0.2) RDW Standard Deviation 42.3 fL (36.4-46.3) RDW Coefficient of Variation 13.5 % (11.5-14.5) Immature Granulocyte % (Auto) 1.6 % Immature Granulocyte # (Auto) 0.15 K/uL (0.00-0.02) Anion Gap 9.0 mmol/L (3-11) Est Creatinine Clear Calc Drug Dose 112.0 ml/min Estimated GFR () 142.2 Estimated GFR (Non- 122.7 BUN/Creatinine Ratio 13.5 (10-20) Calcium Level 9.3 mg/dl (8.5-10.1) Triglycerides Level 157 mg/dl (0-150) Cholesterol Level 200 mg/dl (0-200) HDL Cholesterol 34 mg/dl LDL Cholesterol, Calculated 135 mg/dl VLDL Cholesterol, Calculated 31 mg/dl Cholesterol/HDL Ratio 5.9 Date/Time Source Procedure Growth Status 05/07/17 20:00 Blood Blood Culture Pending Received Last 24 Hours Test 05/07/17 16:00 05/07/17 16:09 05/07/17 20:17 05/07/17 21:19 White Blood Count 12.93 K/uL Red Blood Count 5.33 M/uL Hemoglobin 15.5 g/dL Hematocrit 45.7 % Mean Corpuscular Volume 85.7 fL Mean Corpuscular Hemoglobin 29.1 pg Mean Corpuscular Hemoglobin Concent 33.9 g/dl Platelet Count 425 K/uL Mean Platelet Volume 9.3 fL Neutrophils (%) (Auto) 78.4 % Lymphocytes (%) (Auto) 12.6 % Monocytes (%) (Auto) 7.2 % Eosinophils (%) (Auto) 0.6 % Basophils (%) (Auto) 0.3 % Neutrophils # (Auto) 10.13 K/uL Lymphocytes # (Auto) 1.63 K/uL Monocytes # (Auto) 0.93 K/uL Eosinophils # (Auto) 0.08 K/uL Basophils # (Auto) 0.04 K/uL RDW Standard Deviation 42.2 fL RDW Coefficient of Variation 13.4 % Immature Granulocyte % (Auto) 0.9 % Immature Granulocyte # (Auto) 0.12 K/uL Prothrombin Time 10.5 SECONDS Prothromb Time International Ratio 1.0 Activated Partial Thromboplast Time 39.0 SECONDS Partial Thromboplastin Ratio 1.5 Sodium Level 138 mmol/L Potassium Level 4.4 mmol/L Chloride Level 108 mmol/L Carbon Dioxide Level 22 mmol/L Anion Gap 8.0 mmol/L Blood Urea Nitrogen 10 mg/dl Creatinine 1.10 mg/dl Est Creatinine Clear Calc Drug Dose 72.9 ml/min Estimated GFR () 82.0 Estimated GFR (Non- 70.7 BUN/Creatinine Ratio 8.6 Random Glucose 99 mg/dl Calcium Level 9.4 mg/dl Magnesium Level 2.0 mg/dl Total Bilirubin 0.2 mg/dl Direct Bilirubin < 0.1 mg/dl Aspartate Amino Transf (AST/SGOT) 12 U/L Alanine Aminotransferase (ALT/SGPT) 23 U/L Alkaline Phosphatase 78 U/L Total Creatine Kinase 30 U/L Creatine Kinase MB < 0.5 ng/ml Creatine Kinase MB Ratio Troponin I < 0.015 ng/ml Total Protein 7.7 gm/dl Albumin 4.0 gm/dl Thyroid Stimulating Hormone (TSH) 2.410 uIu/ml Lyme Disease IgG Antibody NEG Lyme Disease IgM Antibody NEG Urine Color YELLOW Urine Appearance CLEAR Urine pH 7.0 Urine Specific Bode 1.006 Urine Protein NEG Urine Glucose (UA) NEG Urine Ketones NEG Urine Occult Blood 3+ Urine Nitrite NEG Urine Bilirubin NEG Urine Urobilinogen NEG Urine Leukocyte Esterase NEG Urine WBC (Auto) 1-5 /hpf Urine RBC (Auto) 10-30 /hpf Urine Hyaline Casts (Auto) 0 /lpf Urine Epithelial Cells (Auto) 0-5 /lpf Urine Bacteria (Auto) NEG Bedside Lactic Acid Venous 1.08 mmol/L Fibrinogen 415 mg/dl Test 05/07/17 21:20 05/08/17 07:59 Lactic Acid Level 1.2 mmol/L White Blood Count 9.29 K/uL Red Blood Count 5.24 M/uL Hemoglobin 14.9 g/dL Hematocrit 44.9 % Mean Corpuscular Volume 85.7 fL Mean Corpuscular Hemoglobin 28.4 pg Mean Corpuscular Hemoglobin Concent 33.2 g/dl Platelet Count 382 K/uL Mean Platelet Volume 9.1 fL Neutrophils (%) (Auto) 72.1 % Lymphocytes (%) (Auto) 17.1 % Monocytes (%) (Auto) 8.1 % Eosinophils (%) (Auto) 0.9 % Basophils (%) (Auto) 0.2 % Neutrophils # (Auto) 6.70 K/uL Lymphocytes # (Auto) 1.59 K/uL Monocytes # (Auto) 0.75 K/uL Eosinophils # (Auto) 0.08 K/uL Basophils # (Auto) 0.02 K/uL RDW Standard Deviation 42.3 fL RDW Coefficient of Variation 13.5 % Immature Granulocyte % (Auto) 1.6 % Immature Granulocyte # (Auto) 0.15 K/uL Sodium Level 142 mmol/L Potassium Level 3.9 mmol/L Chloride Level 111 mmol/L Carbon Dioxide Level 22 mmol/L Anion Gap 9.0 mmol/L Blood Urea Nitrogen 9 mg/dl Creatinine 0.69 mg/dl Est Creatinine Clear Calc Drug Dose 112.0 ml/min Estimated GFR () 142.2 Estimated GFR (Non- 122.7 BUN/Creatinine Ratio 13.5 Random Glucose 91 mg/dl Calcium Level 9.3 mg/dl Triglycerides Level 157 mg/dl Cholesterol Level 200 mg/dl HDL Cholesterol 34 mg/dl LDL Cholesterol, Calculated 135 mg/dl VLDL Cholesterol, Calculated 31 mg/dl Cholesterol/HDL Ratio 5.9 Date/Time Source Procedure Growth Status 05/07/17 20:00 Blood Blood Culture Pending Received 05/07/17 19:55 Blood Blood Culture Pending Received Assessment & Plan 22 yo F with NF Type I presents with acute stroke. No TPA given, residual R facial paralysis. 1. Acute R facial weakness 2/2 acute stroke (small punctate foci of ischemic change seen on MRI in L parietal cortex) versus R facial nerve palsy. Changes are considered acute so supportive of acute stroke. Hypercoagulable workup is pending. Echo with bubble study performed this morning with reading pending. LDL 135, started on Atorvastatin 80 this morning. Cont holding lisinopril to allow permissive HTN. Cont ASA 325. Will need MRA vs CTA of head and neck. TSH stable, Lyme negative. PT/OT evaluated her and pt able to go home. CM discussed HH with family and they favor this idea, so HH will be ordered for her going home. We did discuss the OCPs that she takes, and the risks of stroke while on this. Notably she is a non-smoker. She has taken this since age 9 for heavy menses, and her next cycle starts in two days. Will discuss with Neuro the importance of stopping this prior to doing so. Appreciate Neuro recs. 2. HTN-BP stable, lisinopril held in an effort to allow permissive HTN 3. Chronic tachycardia secondary to autonomic dysfunction as per cardiology eval. Lopressor cut 50% on admission, however, HR is up this morning, so will ensure she is back on 25mg BID. 4. hx obstructive hydrocephalus sp shunt placement/revision. Per Dr. Dasilva' s review of the imaging, appears there are no significant differences in imaging from a couple weeks ago to now. Again, appreciate Neuro recs here. 5. Hypothyroidism-stable, cont current home dose of Synthroid. 6. Seasonal allergies--she is on singulair daily, which was continued this morning. However, with R eye unable to close completely in setting of allergies , she is reporting itching and dryness in her R eye not improved with the refresh tears and lube that she has received so far. No Patanol on formulary; discussed with pharmacist for alternatives. Naphcon A ordered PRN for discomfort. 7. Leukocytosis-mild, poss 2/2 inflammation related to acute stroke. DVT proph-Lovenox 40 Full Code: of note mother makes all decisions and signs all consent for her daughter. Dispo-cont tele for now. Lanette Alvares DO [facility] Hospitalist Consultants: Neurology-Dr. Dev Washington Current Inpatient Medications: Current Inpatient Medications Medications (Trade) Dose Ordered Sig/Colt Route Start Time Stop Time Status Last Admin Dose Admin Gadobutrol (Gadavist) 7.5 mmol UD PRN IV 05/07/17 18:15 05/11/17 18:14 Levothyroxine Sodium (Synthroid Tab) 88 mcg DAILYBB PO 05/08/17 06:00 06/07/17 06:59 05/08/17 05:50 88 MCG Enoxaparin Sodium (Lovenox Inj) 40 mg Q24H SC 05/07/17 22:00 06/06/17 21:59 05/07/17 23:07 40 MG Acetaminophen (Tylenol Tab) 650 mg Q4H PRN PO 05/07/17 20:45 06/06/17 20:44 Nitroglycerin (Nitrostat Tab) 0.4 mg UD PRN SL 05/07/17 20:45 06/06/17 20:44 Aspirin (Ecotrin Tab) 325 mg QAM PO 05/08/17 09:00 06/07/17 08:59 05/08/17 08:08 325 MG Miscellaneous Information (Pharmacist Discharge Med Rec Consult) 1 ea UD PRN N/A 05/07/17 20:45 06/06/17 20:44 Oxycodone/ Acetaminophen (Percocet 5-325mg Tab) 1 tab Q6H PRN PO 05/07/17 20:45 05/21/17 20:44 Morphine Sulfate (MoRPHine SULFATE INJ) 4 mg Q3H PRN IV 05/07/17 20:45 05/21/17 20:44 Ondansetron HCl (Zofran Inj) 4 mg Q6H PRN IV 05/07/17 20:45 06/06/17 20:44 Metoprolol Tartrate (Lopressor Tab) 12.5 mg BID PO 05/08/17 09:00 06/07/17 08:59 05/08/17 08:08 12.5 MG Artificial Tears (Lacri-Lube Oph Oint) 1 appln HS OPR 05/07/17 21:00 06/06/17 20:59 05/07/17 23:06 1 APPLN Sodium Chloride 1,000 ml @ 80 mls/hr [id number] IV 05/08/17 00:00 06/07/17 00:00 05/08/17 00:13 80 MLS/HR Montelukast Sodium (Singulair Tab) 10 mg PM PO 05/08/17 10:30 06/07/17 10:29
[2017-05-08] MEDS ORDERED: METOPROLOL TARTRATE 25 MG TAB PO ONE (11:30)
--- NOTE | 2017-05-08 11:51 | ECHOCARDIOGRAM REPORT ---
*NOTICE TO RECEIVING [employer] This information is strictly Confidential and protected under [place] law. [place] law prohibits you from making any further disclosure of this information unless further disclosure is expressly permitted by the written consent of the person to whom it pertains or is authorized by law. A general authorization for the release of medical or other information is not sufficient for this purpose. Hospital accepts no responsibility if the information is made available to any other person, INCLUDING THE PATIENT. Interpretation Summary * Name: MARIO ALBERTO LACEY Study Date: 05/08/2017 07:00 AM BP: 135/95 mmHg * Patient Location: .2T\S\S233\S\1 HR: 104 * : 1995 (M/d/yyyy) Gender: Female Height: 59 in * Age: 22 yrs Ethnicity: CA Weight: 176 lb * Ordering Physician: Sonido Chew * Referring Physician: Noris Salas * Performed By: Sweta Turpin RDCS * * Reason For Study: STROKE * BSA: 1.7 m2 * -- Conclusions -- * Normal LV chamber size and wall thickness. * Normal LV systolic function, EF 60-65%. * No segmental left ventricular wall motion abnormalities are noted. * Normal diastolic function. * No significant valvular pathology. * The interatrial septum is intact with no evidence for an atrial septal defect. * Injection of contrast documented no interatrial shunt. Procedure Details * A saline contrast injection was performed to assess for cardiac shunting. * The injection was performed through an intravenous line in the right arm. * The attending nurse who injected the saline contrast was CONNIE PATEL RN. * A total of 20 cc of agitated saline was given. * A contrast injection of Definity was performed to improve assessment of LV function. * Contrast was injected into an intravenous site in the right arm. * One vial of Definity ultrasound contrast was diluted in normal saline to a total volume of 10 ml. A total of '2' ml of solution was administered during imaging. * Lot # [id number] of Definity utilized for procedure. * Expiration date MAY 22. * The attending nurse who injected the contrast agent was CONNIE PATEL RN. Left Ventricle * The left ventricle is normal in size. * There is no thrombus. * There is normal left ventricular wall thickness. * Ejection Fraction = 60-65%. * Left ventricular systolic function is normal. * No segmental left ventricular wall motion abnormalities are noted. * The left ventricular wall motion is normal. Right Ventricle * The right ventricular cavity size is normal (basal dimension <4.2 cm in right ventricular apical 4-chamber view). * The right ventricular systolic function is normal as assessed by tricuspid annular plane systolic excursion (TAPSE) (normal >1.5 cm). Atria * The left atrial size is normal. * Right atrial size is normal. * The interatrial septum is intact with no evidence for an atrial septal defect. * Injection of contrast documented no interatrial shunt. Mitral Valve * The mitral valve is normal in structure and function. Tricuspid Valve * The tricuspid valve is normal in structure and function. Aortic Valve * The aortic valve is normal in structure and function. Pulmonic Valve * The pulmonary valve is not well seen, but the Doppler examination is normal without significant regurgitation or stenosis. Great Vessels * The aortic root is normal size. Pericardium/Pleural * There is no pericardial effusion. Left Ventricular Diastolic Function * Pulse wave TDI of the anterior and posterior mitral annulas demonstrates normal LV relaxation MMode 2D Measurements and Calculations IVSd 0.98 cm IVSs 1.7 cm LVIDd 4.0 cm LVIDs 2.7 cm LVPWd 0.64 cm LVPWs 1.2 cm IVS/LVPW 1.5 FS 32.6 % EDV(Teich) 68.3 ml ESV(Teich) 26.3 ml EF(Teich) 61.5 % EDV(cubed) 62.1 ml ESV(cubed) 19.0 ml EF(cubed) 69.3 % % IVS thick 68.0 % % LVPW thick 87.3 % LV mass(C)d 93.6 grams LV mass(C)dI 53.6 grams/m\S\2 LV mass(C)s 124.5 grams LV mass(C)sI 71.3 grams/m\S\2 SV(Teich) 42.0 ml SI(Teich) 24.1 ml/m\S\2 SV(cubed) 43.0 ml SI(cubed) 24.6 ml/m\S\2 Ao root diam 2.3 cm Ao root area 4.3 cm\S\2 LA dimension 2.8 cm LA/Ao 1.2 LVAd ap4 23.2 cm\S\2 LVLd ap4 7.6 cm EDV(MOD-sp4) 57.3 ml LVAs ap4 13.3 cm\S\2 LVLs ap4 6.9 cm ESV(MOD-sp4) 22.0 ml EF(MOD-sp4) 61.6 % LVAd ap2 23.6 cm\S\2 LVLd ap2 7.4 cm EDV(MOD-sp2) 63.3 ml LVAs ap2 11.8 cm\S\2 LVLs ap2 6.2 cm ESV(MOD-sp2) 20.1 ml EF(MOD-sp2) 68.2 % SV(MOD-sp4) 35.3 ml SI(MOD-sp4) 20.2 ml/m\S\2 SV(MOD-sp2) 43.2 ml SI(MOD-sp2) 24.7 ml/m\S\2 Doppler Measurements and Calculations MV E max rj 90.7 cm/sec MV A max rj 70.3 cm/sec MV E/A 1.3 MV dec time 0.18 sec Ao V2 max 131.5 cm/sec Ao max PG 6.9 mmHg Ao max PG (full) 1.8 mmHg LV V1 max PG 5.2 mmHg LV V1 max 113.5 cm/sec
--- NOTE | 2017-05-08 12:01 | Neurology Consultation ---
Neurology Consultation Date of Consultation: May 08, 2017. Attending Physician: Lanette Alvares DO Primary Care Physician: Ria Larson M.D. Reason for Consultation: acute ischemia high left parietal cortex History of Present Illness Source: patient, family Bri is a 22 year old female well know to neurology hx neurofibromatosis type I, obstructive hydrocephalus status post shunt placement/revision, hypertension , hypothyroidism, chronic tachycardia secondary to autonomic dysfunction. When she was 1 years old when she was found to have obstructive hydrocephalus had a shunt placement at [facility], She has had multiple revision last being about 1 year ago at [facility] by [place] Molina. She started having some slight mouth asymmetry on Thursday of this week. It got progressively worse and was seen by her PCP on . The PCP tried to have an MRI arranged but the insurance denied it because she recently had one. Her mother was instructed to take her to ED. A CT scan was done which showed a hyperdensity. It was followed by an MRI with and without which revealed an acute ischemia high left parietal cortex. She was then admitted for further work up. She is on control, estrogen for menses. denies CP, SOB, abdominal pain, weakness, numbness tingling, N, V, swallowing difficulties, slurred speech, vision changes. Social History Marital Status: single Housing Status: lives with family Occupation Status: unemployed Allergies Coded Allergies: No Known Allergies (Unverified , 05/07/17) Current Inpatient Medications Current Inpatient Medications Medications (Trade) Dose Ordered Sig/Colt Route Start Time Stop Time Status Last Admin Dose Admin Gadobutrol (Gadavist) 7.5 mmol UD PRN IV 05/07/17 18:15 05/11/17 18:14 Levothyroxine Sodium (Synthroid Tab) 88 mcg DAILYBB PO 05/08/17 06:00 06/07/17 06:59 05/08/17 05:50 88 MCG Enoxaparin Sodium (Lovenox Inj) 40 mg Q24H SC 05/07/17 22:00 06/06/17 21:59 05/07/17 23:07 40 MG Acetaminophen (Tylenol Tab) 650 mg Q4H PRN PO 05/07/17 20:45 06/06/17 20:44 Nitroglycerin (Nitrostat Tab) 0.4 mg UD PRN SL 05/07/17 20:45 06/06/17 20:44 Aspirin (Ecotrin Tab) 325 mg QAM PO 05/08/17 09:00 06/07/17 08:59 05/08/17 08:08 325 MG Miscellaneous Information (Pharmacist Discharge Med Rec Consult) 1 ea UD PRN N/A 05/07/17 20:45 06/06/17 20:44 Oxycodone/ Acetaminophen (Percocet 5-325mg Tab) 1 tab Q6H PRN PO 05/07/17 20:45 05/21/17 20:44 Morphine Sulfate (MoRPHine SULFATE INJ) 4 mg Q3H PRN IV 05/07/17 20:45 05/21/17 20:44 Ondansetron HCl (Zofran Inj) 4 mg Q6H PRN IV 05/07/17 20:45 06/06/17 20:44 Artificial Tears (Lacri-Lube Oph Oint) 1 appln HS OPR 05/07/17 21:00 06/06/17 20:59 05/07/17 23:06 1 APPLN Montelukast Sodium (Singulair Tab) 10 mg PM PO 05/08/17 10:30 06/07/17 10:29 05/08/17 10:07 10 MG Atorvastatin Calcium (Lipitor Tab) 80 mg QAM PO 05/08/17 11:30 06/07/17 11:29 Metoprolol Tartrate (Lopressor Tab) 25 mg BID PO 05/08/17 21:00 06/07/17 20:59 Naphazoline HCl/ Pheniramine Maleate (Visine-A Oph Soln) 1-2 DROPS IN THE RIGHT ... QID PRN OPR 05/08/17 11:15 06/07/17 11:14 Physical Exam Vital Signs (Past 24 Hrs): Date Time Temp Pulse Resp B/P (MAP) Pulse Ox O2 Delivery O2 Flow Rate FiO2 05/08/17 11:07 36.6 120 18 124/85 (98) 97 Room Air 05/08/17 08:00 Room Air 05/08/17 07:53 36.5 122 20 135/95 (108) 97 Room Air 05/08/17 04:00 Room Air 05/08/17 03:49 37.1 102 19 112/73 (86) 98 Room Air 05/07/17 23:59 Room Air 05/07/17 23:59 Room Air 05/07/17 23:34 37.1 112 19 113/75 (88) 96 Room Air 05/07/17 21:58 37.1 135 19 118/70 96 Room Air 05/07/17 21:24 36.6 128 17 121/82 96 05/07/17 19:39 128 17 121/82 96 Room Air 05/07/17 17:31 137/87 05/07/17 17:22 128 17 128/82 96 Room Air 05/07/17 17:01 122/83 05/07/17 16:52 125 20 96 05/07/17 16:41 121 05/07/17 16:39 121 18 114/83 98 Room Air 05/07/17 16:37 114/83 05/07/17 16:00 98 Room Air 05/07/17 15:28 36.6 124 18 127/74 98 Room Air Physical Exam: Constitutional: appearance nourished, healthy and normal Ears, Nose, Mouth and Throat: mucous membranes moist, no injection and skin normal, eyes normal Cardiovascular: normal S-1 and S-2 and regular rate and rhythm Respiratory: clear to auscultation (CTA) and no rales, rhonchi or wheeze Musculoskeletal: no peripheral edema and good distal pulses Skin: no stigmata of neurocutaneous disease noted and normal and intact Eyes: extraocular muscles intact (EOMI) and pupils equal, round and reactive to light (PERRL), right lid lag NEUROLOGIC EXAMINATION: Mental status: Alert and interactive Oriented to full date and location Oriented to person Speech fluent with no evidence of aphasia Cranial Nerves smile asymmetric with droop on right, right eye brow dose not raise, tongue midline Reflexes: Deep tendon reflexes were symmetrical and graded 2/5. Plantar responses were flexor. Sensory: no deficit to cool or light touch Coordination: finger to nose without bi pass Gait/Stance: Posture normal. Gait normal: with steady with steps, base, turning, tandem gait. Motor: Negative for pronator drift of out stretched arms with eyes closed. Strength: biceps triceps hand technical project coordinator, hip flex 5/5 bilaterally Laboratory Results Past 24 Hours: 05/08/17 07:59 Red Blood Count 5.24, Mean Corpuscular Volume 85.7, Mean Corpuscular Hemoglobin 28.4, Mean Corpuscular Hemoglobin Concent 33.2, Mean Platelet Volume 9.1, Neutrophils (%) (Auto) 72.1, Lymphocytes (%) (Auto) 17.1, Monocytes (%) (Auto) 8.1, Eosinophils (%) (Auto) 0.9, Basophils (%) (Auto) 0.2, Neutrophils # (Auto) 6.70, Lymphocytes # (Auto) 1.59, Monocytes # (Auto) 0.75, Eosinophils # (Auto) 0.08, Basophils # (Auto) 0.02 05/08/17 07:59 Test 05/07/17 16:00 05/07/17 16:09 05/07/17 20:17 05/07/17 21:19 Prothrombin Time 10.5 SECONDS (9.0-12.0) Prothromb Time International Ratio 1.0 (0.9-1.1) Activated Partial Thromboplast Time 39.0 SECONDS (21.0-31.0) Partial Thromboplastin Ratio 1.5 Magnesium Level 2.0 mg/dl (1.8-2.4) Total Bilirubin 0.2 mg/dl (0.2-1) Direct Bilirubin < 0.1 mg/dl (0-0.2) Aspartate Amino Transf (AST/SGOT) 12 U/L (15-37) Alanine Aminotransferase (ALT/SGPT) 23 U/L (12-78) Alkaline Phosphatase 78 U/L (45-117) Total Creatine Kinase 30 U/L (26-192) Creatine Kinase MB < 0.5 ng/ml (0.5-3.6) Creatine Kinase MB Ratio (0-3.0) Troponin I < 0.015 ng/ml (0-0.045) Total Protein 7.7 gm/dl (6.4-8.2) Albumin 4.0 gm/dl (3.4-5.0) Thyroid Stimulating Hormone (TSH) 2.410 uIu/ml (0.300-4.500) Lyme Disease IgG Antibody NEG (NEG) Lyme Disease IgM Antibody NEG (NEG) Urine Color YELLOW Urine Appearance CLEAR (CLEAR) Urine pH 7.0 (4.5-7.5) Urine Specific [place] 1.006 (1.000-1.030) Urine Protein NEG (NEG) Urine Glucose (UA) NEG (NEG) Urine Ketones NEG (NEG) Urine Occult Blood 3+ (NEG) Urine Nitrite NEG (NEG) Urine Bilirubin NEG (NEG) Urine Urobilinogen NEG (NEG) Urine Leukocyte Esterase NEG (NEG) Urine WBC (Auto) 1-5 /hpf (0-5) Urine RBC (Auto) 10-30 /hpf (0-4) Urine Hyaline Casts (Auto) 0 /lpf (0-5) Urine Epithelial Cells (Auto) 0-5 /lpf (0-5) Urine Bacteria (Auto) NEG (NEG) Bedside Lactic Acid Venous 1.08 mmol/L (0.90-1.70) Fibrinogen 415 mg/dl (184-400) Test 05/07/17 21:20 05/08/17 07:59 Lactic Acid Level 1.2 mmol/L (0.4-2.0) White Blood Count 9.29 K/uL (4.8-10.8) Red Blood Count 5.24 M/uL (4.2-5.4) Hemoglobin 14.9 g/dL (12.0-16.0) Hematocrit 44.9 % (37-47) Mean Corpuscular Volume 85.7 fL (80-100) Mean Corpuscular Hemoglobin 28.4 pg (25-34) Mean Corpuscular Hemoglobin Concent 33.2 g/dl (32-36) Platelet Count 382 K/uL (130-400) Mean Platelet Volume 9.1 fL (7.4-10.4) Neutrophils (%) (Auto) 72.1 % Lymphocytes (%) (Auto) 17.1 % Monocytes (%) (Auto) 8.1 % Eosinophils (%) (Auto) 0.9 % Basophils (%) (Auto) 0.2 % Neutrophils # (Auto) 6.70 K/uL (1.4-6.5) Lymphocytes # (Auto) 1.59 K/uL (1.2-3.4) Monocytes # (Auto) 0.75 K/uL (0.11-0.59) Eosinophils # (Auto) 0.08 K/uL (0-0.5) Basophils # (Auto) 0.02 K/uL (0-0.2) RDW Standard Deviation 42.3 fL (36.4-46.3) RDW Coefficient of Variation 13.5 % (11.5-14.5) Immature Granulocyte % (Auto) 1.6 % Immature Granulocyte # (Auto) 0.15 K/uL (0.00-0.02) Anion Gap 9.0 mmol/L (3-11) Est Creatinine Clear Calc Drug Dose 112.0 ml/min Estimated GFR () 142.2 Estimated GFR (Non- 122.7 BUN/Creatinine Ratio 13.5 (10-20) Calcium Level 9.3 mg/dl (8.5-10.1) Triglycerides Level 157 mg/dl (0-150) Cholesterol Level 200 mg/dl (0-200) HDL Cholesterol 34 mg/dl LDL Cholesterol, Calculated 135 mg/dl VLDL Cholesterol, Calculated 31 mg/dl Cholesterol/HDL Ratio 5.9 Imaging MRI with and without contrast- Several small punctate foci of acute ischemic change left parietal cortex. No evidence for midline shift. Ventricular system is now decompressed. No abnormal postcontrast enhancement CT head- Marked interval decrease in the size of the ventricles, which are currently slit-like. This could indicate over shunting. Clinical correlation this regard is advocated. 2. Interval development of left hemispheric hypodensity, predominantly involving the left centrum semiovale but extending to the left frontoparietal cortex. This a nonspecific finding which could be ischemic. An MRI could be obtained in follow-up as deemed clinically indicated. TTE- Normal LV chamber size and wall thickness. Normal LV systolic function, EF 60-65%. No segmental left ventricular wall motion abnormalities are noted. Normal diastolic function. No significant valvular pathology. The interatrial septum is intact with no evidence for an atrial septal defect. Injection of contrast documented no interatrial shunt. Impression 22 year old female with new onset right facial droop Plan 1. estrogen based control- risk benefit should be discussed with mom 2. MRA head neck-for further evaluation of vessels- pending 3. TTE with bubble study- pending 4. PT/OT for discharge needs 5. optimize HTN, DL-LDL <70, DM 6. imaging has been compared to MRI as outpatient -ventricles are decompressed and unchanged since post operative shunt revision 7. coag work up in process lyme titer ordered I have seen and discussed above patient with Dr Dev Washington, neurology Patient seen and above discussed with Noris Fang and with family Young woman with NF type 1 and hydrocephalus post multiple shunts which are now stable and in house today for acute onset of right facial weakness some dysarthria and right arm clumsiness ( this of uncertain duration and may be chronic ) MRI showed evidence for small acute assumedly embolic infarcts in the left hemisphere whcih may or may not corrreslate with the severe right facial palsy that frankly behaves mor like a peripheral seventh than a central Workup underway for asssessment of intracranial circulation which may in NF ! have a [place] like appearance will check a lyme antibody will get a full coagulopathy workup an echo and rx with dual antiplatelet rx for now I will see again tomorrow Meli Washington MD
[2017-05-08] MEDS: ATORVASTATIN 40 MG TAB PO SCH (12:10)
[2017-05-08] MEDS: NAPHAZOLIN/PHENIRAMIN OPH SOLN 75 DROPS/5 ML BTL OPR PRN ×2 (12:31→20:45)
[2017-05-08 15:40] VITALS: BP 127/85; PULSE 94; TEMP 36.8; O2SAT 95
[2017-05-08 17:14] LABS: LYME DISEASE AB IGG NEG (NEG); LYME DISEASE AB IGM NEG (NEG)
--- NOTE | 2017-05-08 19:47 | DIAGNOSTIC IMAGING REPORT ---
Brain MRA HISTORY: 22 yo with acute stoke, R facial nerve palsy TECHNIQUE: 3-D [id number] MRA of the brain was performed without contrast. The left SPECIAL FORCES WEAPONS SERGEANT is fed through the left posterior communicating artery which is consistent with a circulation. The proximal left M1 segment is severely narrowed and may demonstrate an area of focal occlusion. However, there is diminished flow identified within the distal left M1 segment and the remaining portion of the distal left MCA. COMPARISON STUDY: Brain MRI 05/07/2017. FINDINGS: Visualized intracranial internal carotid arteries, distal vertebral arteries, and basilar artery are widely patent. There is no significant stenosis, occlusion, or aneurysm seen within the bilateral right MCA, right GUILLE, or bilateral sales operations assistant. The proximal left M1 segment is severely narrowed. There is diminished flow identified within the distal left M1 segment and the remaining portions of the distal left MCA. Only the very proximal portion of the left A1 segment is identified and is hypoplastic. The remaining portions of the left GUILLE are not identified and likely occluded. IMPRESSION: 1. The proximal left M1 segment is severely narrowed. There is diminished flow identified within the distal left M1 segment and the remaining portions of the distal left MCA. 2. Only the very proximal portion of the left A1 segment is identified and is hypoplastic. The remaining portions of the left GUILLE are not identified and likely occluded. This may be chronic given the lack of an acute infarct on the previous study. Electronically signed by: Milton Tam M.D. 05/08/2017 7:45 PM Dictated Date/Time: 05/08/2017 7:38 PM
--- NOTE | 2017-05-08 19:48 | DIAGNOSTIC IMAGING REPORT ---
NECK MRA HISTORY: Left-sided stroke. 22 yo with acute stroke with R facial nerve paralysis TECHNIQUE: [id number] and gadolinium-enhanced MRA of the neck was performed both before and after the intravenous administration of contrast. All measurements were calculated based on NASCET criteria. COMPARISON STUDY: Carotid Doppler 05/07/2017. FINDINGS: The aortic arch and proximal great vessels are widely patent. There is no significant stenosis, occlusion, or dissection identified within the bilateral common carotid, internal carotid, or vertebral arteries. IMPRESSION: No significant stenosis, occlusion, or dissection identified within the carotid or vertebral arteries. Electronically signed by: Milton Tam M.D. 05/08/2017 7:47 PM Dictated Date/Time: 05/08/2017 7:46 PM
[2017-05-08 20:00] VITALS: BP 128/76; PULSE 115; TEMP 36.8; O2SAT 96
[2017-05-08] MEDS: ARTIFICIAL TEARS OP OINT 3.5 GM TUBE OPR SCH (20:45)
[2017-05-08] MEDS: METOPROLOL TARTRATE 25 MG TAB PO SCH (20:45)
[2017-05-08] MEDS: ENOXAPARIN 40 MG/0.4 ML SYR SC SCH (20:45)
[2017-05-08 23:27] VITALS: BP 100/66; PULSE 86; TEMP 36.8; O2SAT 97
[2017-05-09 03:47] VITALS: BP 114/76; PULSE 92; TEMP 36.5; O2SAT 99
[2017-05-09] MEDS: LEVOTHYROXINE 88 MCG TAB PO SCH (06:10)
[2017-05-09 07:50] VITALS: BP 122/86; PULSE 93; TEMP 36.9; O2SAT 97
[2017-05-09] MEDS: METOPROLOL TARTRATE 25 MG TAB PO SCH (07:58)
[2017-05-09] MEDS: ATORVASTATIN 40 MG TAB PO SCH (07:58)
[2017-05-09] MEDS: ARTIFICIAL TEARS OP OINT 3.5 GM TUBE OPR SCH (07:59)
[2017-05-09] MEDS: ASPIRIN 325 MG ECTAB PO SCH (07:59)
[2017-05-09 09:10] LABS: ESTIMATED AVERAGE GLUCOSE 108 mg/dl; HA1C FLAG Normal (Normal)
[2017-05-09 11:46] VITALS: BP 115/82; PULSE 85; TEMP 36.8; O2SAT 95
[2017-05-09] MEDS ORDERED: CLOPIDOGREL BISULFATE 75 MG TAB PO ONE (13:24)
--- NOTE | 2017-05-09 14:15 | PROGRESS NOTE ---
DATE: 05/09/2017 DATE: 05/09/2017 Bri actually looks better today. She still has a clumsy hand and fairly prominent right facial paresis which really looks to some degree to be peripheral yet has not associated with any hyperacusis or loss of taste or pain in the retroauricular area and has not been associated with any positivity of Lyme antibody titers. 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 While she could have both a CVA involving the left hemisphere which we see on MRI and a Stein's palsy I prefer to use law of parsimony and explain all this on one event. She has 2 small areas of infarction which are acute and on the MR angiographic studies has high grade stenosis of the intracranial portion of the left middle cerebral artery with reconstitution of collaterals distally suggesting that some of this is indeed chronic. I suspect she has had some platelet fibrin emboli coming from the areas of irregularity and the partially occluded segment. Whatever the case, she has not been on antiplatelet drugs. We are going to discharge her or combination of aspirin and Plavix and I reviewed this with Dr. Alvares. She has been on estrogens for years for dysfunctional uterine bleeding and without them she has quite a bit of problems with this, so I think while in theory we should not have her on estrogens that we are going to continue and hopefully the aspirin and Plavix combination prevents further events. Her echocardiogram shows no obvious cardiogenic source of emboli. I do not think we need to postulate this in light of the fact that she does have intracranial stenoses. A full hypercoagulability is pending but I suspect this will be negative. 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 I think the MR technology is not sufficient to demonstrate the typical capillary changes seen in this entity and in the future if she becomes more symptomatic, we may end up having to do an official angiogram and perhaps have one of the vascular neurosurgical experts at [facility] render an opinion about whether an intracranial stenting procedure might be considered, but frankly I doubt it. Since she is stable and the event in question started 4 days ago, I think she probably could be sent home on a combination of aspirin, Plavix and follow up with Noris Salas, who knows her well in about 3-4 weeks. I would be happy to take a look at her in the office with Noris at that time. I went over all of this with the family. I think they understand and I reassured them that this current event has nothing to do with the neurosurgical procedures, but it is part of her neurofibromatosis unfortunately and we have little or nothing more to offer other than antiplatelet treatment for intracranial stenoses. Treatment of this with novel anticoagulants and/or Coumadin I think has a higher risk than benefit ratio. I discussed this with Lanette Alvares as well. I think the plans are again to discharge her home today. YUNG
[2017-05-09] MEDS ORDERED: ATOR-26 PO (14:34)
[2017-05-09] MEDS ORDERED: ARTIOIN11 OPR (14:34)
[2017-05-09] MEDS ORDERED: PLV75 PO (14:34)
[2017-05-09] MEDS ORDERED: ASPEC81 PO (14:34)
[2017-05-09] MEDS ORDERED: LSN10 PO (14:34)
--- NOTE | 2017-05-09 14:45 | Discharge Instructions ---
Discharge Instructions Date of Service May 09, 2017. Admission Reason for Admission: Stroke Discharge Discharge Diagnosis / Problem: Acute MCA Stroke Discharge Goals Goal(s): Prevent Disease Progression Activity Recommendations Activity Limitations: per Instructions/Follow-up section . Instructions / Follow-Up Instructions / Follow-Up Risk Factors for Stroke: You can reduce your chances of stroke by working with your medical provider to adopt a healthy lifestyle. Some specific ways to lower your chance of stroke are: * If you are a smoker, now is the time to stop smoking cigarettes * If you are diabetic, improve the control of your blood sugars * Avoid excessive amounts of alcohol * Control high blood pressure * Lose weight if you are overweight * Be sure to lead an active lifestyle * Eat a healthy diet low in salt, cholesterol and fat You should know about other risk factors for stroke that you are unable to control. These include: * Age 55 years or older * Male gender * Certain racial groups: , or / * Family History of Stroke, Mini stroke or Heart Attack * Sickle Cell Disease Follow Up: It is important for you to keep your follow up appointments with your medical provider. ADDITIONAL PROVIDER INSTRUCTIONS: 1. Please take all medications as prescribed. 2. Note multiple medication changes including a decrease in your LISINOPRIL to 10mg daily. This can be readjusted based on blood pressure when she follows up with her primary care physician (PCP). 3. You have a follow-up appointment with your PCP (Dr. Moreno) for follow-up from this hospitalization on Thursday, 05/15 @ 1:05pm. Please bring all paperwork with you from discharge and arrive 15 minutes early. 4. Please follow-up with [facility] (Dr. Dev Washington/Noris Salas PA-C) in 3-4 weeks in the clinic as instructed. It was a pleasure taking care of you! Call if you have any questions or problems. You can reach a [facility] [address] hospitalist on duty at [facility] 24 hours a day by calling [phone]. Take care of yourself. Lanette Alvares DO [facility] [address] Hospitalist Current Hospital Diet Patient's current hospital diet: AHA Diet (Heart Healthy) Discharge Diet Recommended Diet: AHA Diet (Heart Healthy) Pending Studies Studies pending at discharge: yes List of pending studies: Hypercoagulable workup Finalized blood cultures. Laboratory Results Hemoglobin A1c Test 05/08/17 07:59 Range/Units Estimated Average Glucose 108 mg/dl Hemoglobin A1c 5.4 4.5-5.6 % Lipid Panel Test 05/08/17 07:59 Range/Units Triglycerides Level 157 H 0-150 mg/dl Cholesterol Level 200 0-200 mg/dl HDL Cholesterol 34 mg/dl Cholesterol/HDL Ratio 5.9 LDL Cholesterol, Calculated 135 mg/dl Medical Emergencies . Who to Call and When: Medical Emergencies: Call 911 immediately if you experience any of the following warning signs and symptoms of Stroke: * Sudden numbness or weakness of the face, arm or leg, especially on one side of the body * Sudden confusion, trouble speaking or understanding * Sudden trouble seeing in one or both eyes * Sudden trouble walking, dizziness, loss of balance or coordination * Sudden severe headache with no cause Do not delay calling 911 if you experience any warning signs or symptoms of a stroke. Delay in seeking medical attention may affect what treatments can be given to you. . Non-Emergent Contact Non-Emergency issues call your: Primary Care Provider . . "Provider Documentation" section prepared by Lanette Alvares. . Stroke Core Measures Reason no t-PA for Stroke: Treatment not indicated Reason no antithrom by day 2: Treatment provided - N/A Reason no antithrom at D/C: Treatment provided - N/A Reason no statin at D/C: Treatment provided - N/A Reason no anticoag w/a fib: Treatment not indicated VTE Core Measure Inpt VTE Proph given/why not?: Enoxaparin (Lovenox)SQ
--- NOTE | 2017-05-09 14:55 | Discharge Summary ---
Discharge Summary Date of Service May 09, 2017. Discharge Summary Admission Date: May 07, 2017 at 20:08 Discharge Date: May 09, 2017 Discharge Disposition: Home Principal Diagnosis: Acute MCA stroke with MCA stenosis HTN Chronic tachycardia 2/2 autonomic dysfunction h/o obstructive hydrocephalus-stable Hypothyroidism Seasonal allergies Leukocytosis NFI Procedures: TTE: * Normal LV chamber size and wall thickness. * Normal LV systolic function, EF 60-65%. * No segmental left ventricular wall motion abnormalities are noted. * Normal diastolic function. * No significant valvular pathology. * The interatrial septum is intact with no evidence for an atrial septal defect. * Injection of contrast documented no interatrial shunt. Vaccinations: None. Consultations: Neurology-Dr. Dev Washington Pending Studies/Follow-Up: see instructions below Medication Reconciliation New Medications: Artificial Tear Ointment (Akwa Tears) 1 Oin Oin 1 APPLN OPR HS for 10 Days, #1 EA 3 Refills Aspirin (Aspirin EC Low Dose) 81 Mg Ectab 81 MG PO QAM for 30 Days, #30 TAB 5 Refills Atorvastatin (Lipitor) 80 Mg Tab 1 TAB PO DAILY for 30 Days, #30 TAB 3 Refills Clopidogrel Bisulfate (Clopidogrel) 75 Mg Tab 75 MG PO QAM for 30 Days, #30 TAB 3 Refills Lisinopril (Zestril) 10 Mg Tab 10 MG PO QAM for 30 Days, #30 TAB 0 Refills Continued Medications: Ethinyl Estradiol/Norgestrel (Cryselle-28) 1 Tab Tab 1 TAB PO DAILY Levothyroxine Sodium (Levothyroxine Sodium) 88 Mcg Tab 88 MCG PO QAM, #30 Metoprolol Tartrate (Lopressor) (Lopressor) 25 Mg Tab 25 MG PO BID, #68 Montelukast Sod (Montelukast Sodium) 10 Mg Tab 10 MG PO DAILY PRN for ALLERGIES Discontinued Medications: Enalapril Maleate (Enalapril Maleate) 20 Mg Tab 20 MG PO DAILY Admission Information HPI (per Admitting provider): HISTORY OF PRESENT ILLNESS: History obtained from patient, records, family. Medical history significant for neurofibromatosis type I, obstructive hydrocephalus status post shunt placement/revision, hypertension, hypothyroidism , chronic tachycardia secondary to autonomic dysfunction as per records. Patient was 1 years old when she was found to have obstructive hydrocephalus. Subsequently had shunt placement at [facility]. Multiple shunt revisions the last one was at [facility] about a year ago by Dr. Molina. A few months ago, she had transient right-sided facial asymmetry. MRI of the brain and face from January 2017 as follows : 1.. Interval reduction of hydrocephalus. Stable position of bilateral PA[employer]OR[employer] ASSISTANT shunt catheters as described above. 2. With reduction of hydrocephalus there is improved visualization of a cystic lesion adjacent to the superior margin of the quadrigeminal plate and posterior margin of the left thalamus at the midline, with partial effacement of the 3rd ventricle. 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 3. Slight interval decrease in size of the heterogeneous T2 hyperintense lesion in the right caudal thalamic groove, which may represent a focus of dysplasia. A linear region of T2 hyperintensity in the left cerebral peduncle extending into the posterior limb of the internal capsule is slightly more conspicuous, and may reflect changes in the myelin pattern associated with NF 1 or a focus of dysplasia, and attention could be directed this finding at the time of follow-up imaging to exclude progression. There is no enhancement of these lesions. 4. Interval increase in T2 hyperintensity with mild volume loss of the parietal white matter and adjacent cortex, of uncertain etiology. This is new since the MRI from 05/28/2015. If an outside MRI has been performed in the meantime, and could be scanned into our PACS, a comparison addendum will be provided. Otherwise, a short interval follow-up brain MRI with contrast is recommended in 3 months to exclude progression. 5. MRI of the face shows no abnormality of the brainstem or cranial nerves, including the course of the facial nerve. Two days ago, the patient was noted to have recurrence of facial droop in involving the right half of her face. Incomplete R eyelid closure noted. No headache, no nausea, no vomiting, no chest pain, no shortness of breath. Patient's mother in correspondence with [facility] Neurology. As per correspondence with patient's mother, Neurology recommended PCP visit, and possible Neurology appointment after. As per outpatient note, mother advised to take patient to the emergency room if she thought something more urgent was needed. Patient seen at PCPs office. Brain MRI recommended. Patient eventually brought by family to the Emergency Room. Brain MRI showed several small punctate foci of ischemia left parietal cortex. No evidence of midline shift; decompressed ventricular system. Patient given ASA in the Emergency Room as per Neurology recommendation. Physical Exam (per Admitting): PHYSICAL EXAMINATION: VITAL SIGNS: Blood pressure was noted to be 137/87, pulse rate 120, RR 17, temperature 36.6, sats 96 on room air. GENERAL: Noted to be obese, no respiratory distress, some restlessness. SKIN: Normal color. HEENT: [place] palpebral conjunctivae, dry mucosa. Facial asymmetry involving R half the face; incomplete eyelid closure right. NECK: Short neck. LUNGS: Decreased breath sounds. HEART: Tachycardic. ABDOMEN: Some distention, NT EXTREMITIES: No edema, no tenderness. NEUROLOGIC: No gross focality except for right facial asymmetry. Hospital Course 22 yo F with NF Type I presents with acute stroke. No TPA given, residual R facial paralysis. 1. Acute R facial weakness 2/2 acute stroke (small punctate foci of ischemic change seen on MRI in L parietal cortex) versus R facial nerve palsy. Changes are considered acute so supportive of acute stroke. Hypercoagulable workup is pending. Echo with bubble study performed revealing: * Normal LV chamber size and wall thickness. * Normal LV systolic function, EF 60-65%. * No segmental left ventricular wall motion abnormalities are noted. * Normal diastolic function. * No significant valvular pathology. * The interatrial septum is intact with no evidence for an atrial septal defect. * Injection of contrast documented no interatrial shunt. TSH stable, Lyme negative. PT/OT evaluated her and pt able to go home. CM discussed HH with family and they favor this idea, so HH will be ordered for her going home. We did discuss the OCPs that she takes, and the risks of stroke while on this. Notably she is a non-smoker. She has taken this since age 9 for heavy menses, and her next cycle starts in two days. Discussed this with Neurology who recommends continuing them for now. Imaging reveals narrowing of the MCA consistent with neuro deficits. 2. HTN-BP stable, lisinopril held in an effort to allow permissive HTN 3. Chronic tachycardia secondary to autonomic dysfunction as per cardiology eval. Cont Lopressor to stabilized heart rate. 4. hx obstructive hydrocephalus sp shunt placement/revision. Per Dr. Dasilva' s review of the imaging, appears there are no significant differences in imaging from a couple weeks ago to now. Again, appreciate Neuro recs here. 5. Hypothyroidism-stable, cont current home dose of Synthroid. 6. Seasonal allergies--she is on singulair daily, which was continued this morning. However, with R eye unable to close completely in setting of allergies , she is reporting itching and dryness in her R eye not improved with the refresh tears and lube that she has received so far. No Patanol on formulary; discussed with pharmacist for alternatives. Naphcon A ordered PRN for discomfort. 7. Leukocytosis-mild, poss 2/2 inflammation related to acute stroke. On day of discharge she was afebrile and hemodynamically stable. She was ambulating with no changes to her exam including persistent facial droop. This did not interfere with her ability to tolerate PO, however. She was discharged into the care of family in stable condition with HH ordered. Total time spent on discharge = 60 minutes This includes examination of the patient, discharge planning, medication reconciliation, and communication with other providers[place] [address] Discharge Stroke Condition Patient Name: Bri Cárdenas Unit Number: [id number] Date of : 1995 Patient Status: Admitted Inpatient Attending Doctor: Lanette Alvares DO DI: Stroke v4 Discharge Instructions Date of Service May 09, 2017. Admission Reason for Admission: Stroke Discharge Discharge Diagnosis / Problem: Acute MCA Stroke Discharge Goals Goal(s): Prevent Disease Progression Activity Recommendations Activity Limitations: per Instructions/Follow-up section . Instructions / Follow-Up Instructions / Follow-Up Risk Factors for Stroke: You can reduce your chances of stroke by working with your medical provider to adopt a healthy lifestyle. Some specific ways to lower your chance of stroke are: * If you are a smoker, now is the time to stop smoking cigarettes * If you are diabetic, improve the control of your blood sugars * Avoid excessive amounts of alcohol * Control high blood pressure * Lose weight if you are overweight * Be sure to lead an active lifestyle * Eat a healthy diet low in salt, cholesterol and fat You should know about other risk factors for stroke that you are unable to control. These include: * Age 55 years or older * Male gender * Certain racial groups: , or / * Family History of Stroke, Mini stroke or Heart Attack * Sickle Cell Disease Follow Up: It is important for you to keep your follow up appointments with your medical provider. ADDITIONAL PROVIDER INSTRUCTIONS: 1. Please take all medications as prescribed. 2. Note multiple medication changes including a decrease in your LISINOPRIL to 10mg daily. This can be readjusted based on blood pressure when she follows up with her primary care physician (PCP). 3. You have a follow-up appointment with your PCP (Dr. Moreno) for follow-up from this hospitalization on Thursday, 05/15 @ 1:05pm. Please bring all paperwork with you from discharge and arrive 15 minutes early. 4. Please follow-up with [facility] Neurology (Dr. Dev Washington/Noris Salas PA-C) in 3-4 weeks in the clinic as instructed. It was a pleasure taking care of you! Call if you have any questions or problems. You can reach a [facility] hospitalist on duty at [facility] 24 hours a day by calling [phone]. Take care of yourself. Lanette Alvares, [facility] Hospitalist Current Hospital Diet Patient's current hospital diet: AHA Diet (Heart Healthy) Discharge Diet Recommended Diet: AHA Diet (Heart Healthy) Pending Studies Studies pending at discharge: yes List of pending studies: Hypercoagulable workup Finalized blood cultures. Laboratory Results Hemoglobin A1c Test 05/08/17 07:59 Range/Units Estimated Average Glucose 108 mg/dl Hemoglobin A1c 5.4 4.5-5.6 % Lipid Panel Test 05/08/17 07:59 Range/Units Triglycerides Level 157 H 0-150 mg/dl Cholesterol Level 200 0-200 mg/dl HDL Cholesterol 34 mg/dl Cholesterol/HDL Ratio 5.9 LDL Cholesterol, Calculated 135 mg/dl Medical Emergencies . Who to Call and When: Medical Emergencies: Call 911 immediately if you experience any of the following warning signs and symptoms of Stroke: * Sudden numbness or weakness of the face, arm or leg, especially on one side of the body * Sudden confusion, trouble speaking or understanding * Sudden trouble seeing in one or both eyes * Sudden trouble walking, dizziness, loss of balance or coordination * Sudden severe headache with no cause Do not delay calling 911 if you experience any warning signs or symptoms of a stroke. Delay in seeking medical attention may affect what treatments can be given to you. . Non-Emergent Contact Non-Emergency issues call your: Primary Care Provider . . "Provider Documentation" section prepared by Lanette Alvares. . Stroke Core Measures Reason no t-PA for Stroke: Treatment not indicated Reason no antithrom by day 2: Treatment provided - N/A Reason no antithrom at D/C: Treatment provided - N/A Reason no statin at D/C: Treatment provided - N/A Reason no anticoag w/a fib: Treatment not indicated VTE Core Measure Inpt VTE Proph given/why not?: Enoxaparin (Lovenox)SQ Additional Copies To Noris Salas PA-C; Ria Larson M.D.; Gideon Moreno M.D.
[2017-05-09 15:12] VITALS: BP 116/78; PULSE 88; TEMP 36.7; O2SAT 96
--- NOTE | 2017-05-09 17:19 | Pharmacy Progress Note ---
Pharmacist Stroke Counseling Date of Service May 09, 2017. Scope Pharmacy has been consulted to provide medication discharge counseling for this patient admitted with transient ischemic attack as per the Pharmacist Discharge Counseling for Stroke Patients Protocol. Medications on Discharge New Medications: Artificial Tear Ointment (Akwa Tears) 1 Oin Oin 1 APPLN OPR HS for 10 Days, #1 EA 3 Refills Aspirin (Aspirin EC Low Dose) 81 Mg Ectab 81 MG PO QAM for 30 Days, #30 TAB 5 Refills Atorvastatin (Lipitor) 80 Mg Tab 1 TAB PO DAILY for 30 Days, #30 TAB 3 Refills Clopidogrel Bisulfate (Clopidogrel) 75 Mg Tab 75 MG PO QAM for 30 Days, #30 TAB 3 Refills Lisinopril (Zestril) 10 Mg Tab 10 MG PO QAM for 30 Days, #30 TAB 0 Refills Continued Medications: Ethinyl Estradiol/Norgestrel (Cryselle-28) 1 Tab Tab 1 TAB PO DAILY Levothyroxine Sodium (Levothyroxine Sodium) 88 Mcg Tab 88 MCG PO QAM, #30 Metoprolol Tartrate (Lopressor) (Lopressor) 25 Mg Tab 25 MG PO BID, #68 Montelukast Sod (Montelukast Sodium) 10 Mg Tab 10 MG PO DAILY PRN for ALLERGIES Discontinued Medications: Enalapril Maleate (Enalapril Maleate) 20 Mg Tab 20 MG PO DAILY Action The above medications, specifically ones for stroke treatment/prophylaxis, have been reviewed in detail with the patient and/or patient business office representative(s) prior to discharge. This includes indication, common adverse reactions, drug interactions, and medication administration. Medication counseling has been employed using the teach-back method to ensure understanding. Outcome The patient and patient business office representative have demonstrated understanding of the medications. Please note, they are aware that the pharmacist will call them within 72 hours post-discharge to confirm that the appropriate medications are being taken and answer any further medication related questions the patient might have at that time. Contact information Individual to be contacted: Anahi Relationship to patient (if applicable): Mother Phone number: [phone] Best time to call: around 9am Thank you for allowing pharmacy to be involved in the care of this patient. Please call [phone] or [phone] with any additional questions
[2017-05-10] MEDS ORDERED: CLOPIDOGREL BISULFATE 75 MG TAB PO SCH (09:00)
[2017-05-10] MEDS ORDERED: LISINOPRIL 10 MG TAB PO SCH (09:00)
[2017-05-10] MEDS ORDERED: ASPIRIN 81 MG ECTAB PO SCH (09:00)
[2017-05-12] MEDS ORDERED: PROPARACAINE 0.5% OP SOLN PER DROP CHARGE OPR SCH (06:00)
[2017-05-12] MEDS ORDERED: LACTATED RINGER'S 1000ML 500 ML IV SCH (06:00)
[2017-05-12] MEDS ORDERED: PHENYLEPHRINE HCL 2.5% OP SOLN PER DROP CHARGE OPR SCH (06:01)
[2017-05-12] MEDS ORDERED: TROPICAMIDE 1% OP SOLN PER DROP CHARGE OPR SCH (06:02)
[2017-05-12] MEDS ORDERED: CYCLOPENTOLATE HCL 1% OP SOLN PER DROP CHARGE OPR SCH (06:03)
[2017-05-12] MEDS ORDERED: KETOROLAC 0.5% OP SOLN PER DROP CHARGE OPR SCH (06:04)
[2017-05-12] MEDS ORDERED: GATIFLOXACIN OP SOLN PER DROP CHARGE OPR SCH (06:05)
--- NOTE | 2017-05-12 09:26 | Pharmacy Progress Note ---
Pharmacist Post D/C Phone Note Date of phone call: May 12, 2017. Individual with whom pharmacist spoke to: Patient's mother, Anahi The following questions were reviewed during the phone call with responses listed below each: Can you tell me the medications that you are currently taking as well as when and how you take each medication? - Medications Dose Route/Sig Max Daily Dose Days Date Category Akwa Tears (Artificial Tear Ointment) 1 Oin Oin 1 Appln OPR HS 10 05/09/17 Rx Aspirin EC Low Dose (Aspirin) 81 Mg Ectab 81 Mg PO QAM 30 05/09/17 Rx Zestril (Lisinopril) 10 Mg Tab 10 Mg PO QAM 30 05/09/17 Rx Lipitor (Atorvastatin Calcium) 80 Mg Tab 1 Tab PO DAILY 30 05/09/17 Rx Clopidogrel (Clopidogrel Bisulfate) 75 Mg Tab 75 Mg PO QAM 30 05/09/17 Rx Levothyroxine Sodium 88 Mcg Tab 88 Mcg PO QAM 05/07/17 Reported Lopressor (Metoprolol Tartrate) 25 Mg Tab 25 Mg PO BID 05/07/17 Reported Montelukast Sodium (Montelukast Sod) 10 Mg Tab 10 Mg PO DAILY PRN 06/08/15 Reported -N-c-f-s-t-b-l-e-----2-8- - - -(--W-m-i-i-n-y-l- -Q-d-r-f-a-d-i-o-l--/--Z-p-p-t-v-f-t-r-e-l--)- -1- -T-a-b- -T-a-b- - - -1- -T-a-b- -P-O- -D-A-I-L-Y- - - -9--/--4--/--1-5- -D-i-b-o-r-t-e-d- Anahi {patient's mother} called OBGYN who strongly advised stopping her BCP. Bri was supposed to start a new cycle of BCP this week but her mother is not giving it to her anymore. They are going to see how her heavy menstrual cycle goes without the BCP. She has a follow up appt on 06/15/17 and they can discuss other options if needed. When have you missed any doses of your medications? - No missed doses What side effects are you having from your medications? - None at this time What questions do you have about your medications? - What side effects should we be looking for? - I discussed muscle aches/pains with lipitor, bleeding/bruising/upset stomach with aspirin & plavix, dizziness/hypotension with lisinopril & lopressor. - All other meds are chronic meds that she tolerates well. What problems are you having obtaining your medications? - None When is your next appointment with your primary care doctor? - 05/14/17 @ 3:30pm - Neuro follow up 05/29/17 Additional comments: - Home health is coming today. She would like them to help monitor her BP - she will discuss this with them this morning. As per the Pharmacist Discharge Counseling for Stroke Patients Protocol, this phone call has been completed within 72 hours of discharge. Thank you for allowing us to be involved in the care of this patient.
[2017-05-13 11:36] LABS: ANTITHROMBINIII ACTIVITY** 104 % activity (80-120); B2 GLYCOPROTEIN IGA <9 SAU (<=20); B2 GLYCOPROTEIN IGG <9 SGU (<=20); B2 GLYCOPROTEIN IGM <9 SMU (<=20); LUPUS ANTICOAGULANT** TC36573X Negative (Negative); PROTEIN C ACTIVITY** TC 1777X 120 % (70-180); PROTEIN S ACT(FUNCT)**1779X 86 % (60-140)
[2017-05-25 08:54] LABS: FACTOR VIII ACTIV**SEND TO GMC 132 % (55 - 145)
== END 2017-05-09 16:01 | disposition home health service (06) | DRG 66 ==
LOC: C.EDB 15:29 → C.2T 20:08 → ENRESERV 20:26
PROVIDERS: ADMIT Internal Medicine; ATTEND Hospitalist
DX: I63.512 Cerebral infarction due to unspecified occlusion or stenosis of left middle cerebral artery (principal); Q85.01 Neurofibromatosis, type 1; I10 Essential (primary) hypertension; R00.0 Tachycardia, unspecified; E03.9 Hypothyroidism, unspecified; J30.2 Other seasonal allergic rhinitis; D72.829 Elevated white blood cell count, unspecified; Z86.69 Personal history of other diseases of the nervous system and sense organs; Z98.2 Presence of cerebrospinal fluid drainage device; Z79.3 Long term (current) use of hormonal contraceptives; Z79.899 Other long term (current) drug therapy; Z82.61 Family history of arthritis; Z82.5 Family history of asthma and other chronic lower respiratory diseases; Z82.49 Family history of ischemic heart disease and other diseases of the circulatory system; Z80.49 Family history of malignant neoplasm of other genital organs; Z83.49 Family history of other endocrine, nutritional and metabolic diseases; Z84.1 Family history of disorders of kidney and ureter

== ENCOUNTER 2017-06-08 15:00 | Emergency (ER) | payer OTHER ==
[~2017-06-08] VITALS: Ht 149.9 cm; Wt 80.4 kg
[~2017-06-08 15:00] MED LIST changes: +ARTIOIN11 OPR; +ASPEC81 PO; +ATOR-26 PO; -CRY28 PO; -ENAL20TA PO; -HYDR12.56 PO; -LEVO75TA5 PO; +LEVO88TA3 PO; +LSN10 PO; +METO25TA56 PO; +PLV75 PO
[2017-06-08] MEDS ORDERED: SODIUM CHLORIDE 0.9% 1000ML 1,000 ML IV SCH (15:23)
[2017-06-08 15:34] VITALS: Ht 149.9 cm; Wt 80.4 kg
[2017-06-08 15:40] LABS: BASO % 0.5 %; BASO ABS # 0.05 K/uL (0-0.2); COMPLETE YES; EOS % 2.6 %; HEMATOCRIT 42.1 % (37-47); IG% 1.2 %; LYMPH % 14.1 %; LYMPH ABS # 1.54 K/uL (1.2-3.4); MEAN CELL VOLUME 84.4 fL (80-100); MEAN CORPUSCULAR HEMOGLOBIN 28.9 pg (25-34); MEAN CORPUSCULAR HGB CONC 34.2 g/dl (32-36); MEAN PLATELET VOLUME 9.3 fL (7.4-10.4); MONO % 7.6 %; PLATELET COUNT 355 K/uL (130-400); RED BLOOD COUNT 4.99 M/uL (4.2-5.4); WHITE BLOOD COUNT 10.94 K/uL (4.8-10.8)
[2017-06-08 15:48] LABS: PARTIAL THROMBOPLASTIN RATIO 1.4; PROTHROMBIN TIME (PATIENT) 10.6 SECONDS (9.0-12.0)
[2017-06-08 15:49] VITALS: O2SAT 97
[2017-06-08 15:56] LABS: BLOOD UREA NITROGEN 10 mg/dl (7-18); BUN/CREATININE RATIO 15.8 (10-20); CALCIUM 8.8 mg/dl (8.5-10.1); CARBON DIOXIDE 24 mmol/L (21-32); CHLORIDE 109 mmol/L (98-107); CREATININE 0.65 mg/dl (0.60-1.20); GLUCOSE 109 mg/dl (70-99); POTASSIUM 3.9 mmol/L (3.5-5.1); SODIUM 141 mmol/L (136-145)
--- NOTE | 2017-06-08 16:00 | EMERGENCY ROOM VISIT NOTE ---
History First contact with patient: 15:14 Chief Complaint: FALL Stated Complaint: FELL History of Present Illness The patient is a 22 year old female who presents to the Emergency Room via private vehicle accompanied by parents with complaints of "fall". The patient is companied by her parents, who states that today they went for a walk, and she fell forward striking her knees and hands. The mother states that she was talking to her daughter when this occurred, and notes that she did not lose consciousness, but is unsure why she fell. She states that she did not lose consciousness, nor strike her head. Patient denies any dizziness, lightheadedness, legs giving out on her, striking her head, chest pain, shortness of breath, fevers or chills. The patient was seen here about 5 weeks ago and diagnosed with a stroke, she notes that this time she does not have any symptoms similar to that. Review of Systems A complete 10-point Review of Systems was discussed with the patient, with pertinent positives and negatives listed in the History of Present Illness. All remaining Review of Systems questions can be considered negative unless otherwise specified. Past Medical/Surgical History Medical Problems: (1) HTN (hypertension) (2) Hydrocephalus (3) Neurofibromatosis (4) Stroke Surgical Problems: (1) S/P YAM CURER shunt Family History Cancer Heart disease Social History Smoking Status: Never Smoker Alcohol Use: none Marital Status: single Housing Status: lives with family Occupation Status: unemployed Current/Historical Medications Scheduled Aspirin (Aspirin Ec), 81 MG PO DAILY Atorvastatin (Lipitor), 80 MG PO DAILY Clopidogrel (Plavix), 75 MG PO DAILY Levothyroxine Sodium (Levothyroxine Sodium), 88 MCG PO QAM Lisinopril (Zestril), 10 MG PO DAILY Metoprolol Tartrate (Lopressor) (Lopressor), 25 MG PO BID Scheduled PRN Montelukast Sod (Montelukast Sodium), 10 MG PO DAILY PRN for ALLERGIES Physical Exam Vital Signs Date Time Temp Pulse Resp B/P (MAP) Pulse Ox O2 Delivery O2 Flow Rate FiO2 06/08/17 16:58 97 18 123/71 98 Room Air 06/08/17 16:49 37.5 06/08/17 16:01 102 06/08/17 15:49 100 20 129/63 97 Room Air 06/08/17 15:49 97 Room Air 06/08/17 15:05 Room Air Physical Exam VITAL SIGNS - Vital signs and nursing notes were reviewed. Stable. GENERAL -22-year-old female appearing her stated age who is in no acute distress. Communicates well with provider and answers questions appropriately. SKIN - Without rashes. HEAD - NC/AT. EYES - PERRL with EOMI bilaterally. Sclera anicteric. Palpebral conjunctiva pink and moist with no injection noted. EARS - No deformities of external structures noted on gross examination bilaterally. No pain elicited with palpation of the tragus bilaterally. External auditory canals without discharge or otorrhea. Tympanic membranes pearly ramires without retraction or bulging. No fluid or purulent material visualized behind the TM. Handle of malleus, umbo, cone of light, pars tensa/ flaccid all easily visualized. NOSE - Midline and without cyanosis. No epistaxis or purulent drainage noted. Septum midline without deviation or septal hematoma noted. MOUTH/OROPHARYNX - Without perioral cyanosis. Buccal mucosa pink and moist and without leukoplakia. Tongue midline with equal elevation of palate bilaterally. No tonsillar hypertrophy, erythema, or exudates noted. Fair dentition noted. NECK - Neck with FROM. Supple to palpation. No lymphadenopathy noted. No nuchal rigidity. LUNGS - Chest wall symmetric without accessory muscle use, intercostals retractions, or central cyanosis. Normal vesicular breath sounds CTA B/L. No wheezes, rales, or rhonchi appreciated. CARDIAC - RRR with S1/S2. No murmur, rubs, or gallops appreciated. EXTREMITIES - No clubbing or peripheral cyanosis. No pretibial edema present. + 5/5 strength noted in UE/LE bilaterally. NEUROLOGIC - Cranial nerves II through XII grossly intact. Sensory intact to light touch throughout. Patellar reflexes +2/4. PSYCH - A&Ox3 and cooperates fully with examiner. Pt is very pleasant and interacts well with examiner. Medical Decision & Procedures ER Provider Diagnostic Interpretation: HEAD WITHOUT CONTRAST (CT) CLINICAL HISTORY: 22 years-old Female with Stroke. Acute strokelike symptoms. TECHNIQUE: Multiple axial CT images of the head were obtained without contrast. A dose lowering technique was utilized adhering to the principles of ALARA. CT DOSE: 537.48 mGy.cm COMPARISON: MRI brain and CT head 05/07/2017. FINDINGS: 3 ventricular shunt catheters are again noted and are in stable positioning. Right parieto-occipital shunt catheter terminates in the frontal horn. The left parieto-occipital catheter terminates in the third ventricle and lastly, the left frontal catheter terminates near the left lateral ventricle. Encephalomalacia from a prior infarction is again seen involving the left frontal lobe centrum semiovale. There is no acute intracranial hemorrhage, midline shift, hydrocephalus or abnormal extra-axial collections. No territorial ischemia. There is no calvarial fracture. The mastoid air cells and middle ear cavities are clear. Soft tissues are unremarkable. Orbits are symmetric. IMPRESSION: 1. No acute intracranial abnormality. 2. Unchanged positioning of the three ventricular shunt catheters. 3. Encephalomalacia of the left frontal lobe centrum semiovale redemonstrated correlating with remote infarction. No territorial ischemia identified. The above report was generated using voice recognition software. It may contain grammatical, syntax or spelling errors. Electronically signed by: Tolu Kraus M.D. 06/08/2017 4:22 PM Dictated Date/Time: 06/08/2017 4:18 PM Laboratory Results 06/08/17 15:30 Red Blood Count 4.99, Mean Corpuscular Volume 84.4, Mean Corpuscular Hemoglobin 28.9, Mean Corpuscular Hemoglobin Concent 34.2, Mean Platelet Volume 9.3, Neutrophils (%) (Auto) 74.0, Lymphocytes (%) (Auto) 14.1, Monocytes (%) (Auto) 7.6, Eosinophils (%) (Auto) 2.6, Basophils (%) (Auto) 0.5, Neutrophils # (Auto) 8.11, Lymphocytes # (Auto) 1.54, Monocytes # (Auto) 0.83, Eosinophils # (Auto) 0.28, Basophils # (Auto) 0.05 06/08/17 15:30 Test 06/08/17 15:29 06/08/17 15:30 Urine Color YELLOW Urine Appearance CLEAR (CLEAR) Urine pH 7.0 (4.5-7.5) Urine Specific Mcclure 1.010 (1.000-1.030) Urine Protein NEG (NEG) Urine Glucose (UA) NEG (NEG) Urine Ketones NEG (NEG) Urine Occult Blood NEG (NEG) Urine Nitrite NEG (NEG) Urine Bilirubin NEG (NEG) Urine Urobilinogen NEG (NEG) Urine Leukocyte Esterase NEG (NEG) White Blood Count 10.94 K/uL (4.8-10.8) Red Blood Count 4.99 M/uL (4.2-5.4) Hemoglobin 14.4 g/dL (12.0-16.0) Hematocrit 42.1 % (37-47) Mean Corpuscular Volume 84.4 fL (80-100) Mean Corpuscular Hemoglobin 28.9 pg (25-34) Mean Corpuscular Hemoglobin Concent 34.2 g/dl (32-36) Platelet Count 355 K/uL (130-400) Mean Platelet Volume 9.3 fL (7.4-10.4) Neutrophils (%) (Auto) 74.0 % Lymphocytes (%) (Auto) 14.1 % Monocytes (%) (Auto) 7.6 % Eosinophils (%) (Auto) 2.6 % Basophils (%) (Auto) 0.5 % Neutrophils # (Auto) 8.11 K/uL (1.4-6.5) Lymphocytes # (Auto) 1.54 K/uL (1.2-3.4) Monocytes # (Auto) 0.83 K/uL (0.11-0.59) Eosinophils # (Auto) 0.28 K/uL (0-0.5) Basophils # (Auto) 0.05 K/uL (0-0.2) RDW Standard Deviation 40.6 fL (36.4-46.3) RDW Coefficient of Variation 13.3 % (11.5-14.5) Immature Granulocyte % (Auto) 1.2 % Immature Granulocyte # (Auto) 0.13 K/uL (0.00-0.02) Prothrombin Time 10.6 SECONDS (9.0-12.0) Prothromb Time International Ratio 1.0 (0.9-1.1) Activated Partial Thromboplast Time 35.9 SECONDS (21.0-31.0) Partial Thromboplastin Ratio 1.4 Anion Gap 8.0 mmol/L (3-11) Est Creatinine Clear Calc Drug Dose 123.5 ml/min Estimated GFR () 145.0 Estimated GFR (Non- 125.1 BUN/Creatinine Ratio 15.8 (10-20) Calcium Level 8.8 mg/dl (8.5-10.1) Total Creatine Kinase 44 U/L (26-192) Creatine Kinase MB < 0.5 ng/ml (0.5-3.6) Creatine Kinase MB Ratio (0-3.0) Troponin I < 0.015 ng/ml (0-0.045) Medications Administered Medications (Trade) Dose Ordered Sig/Colt Route Start Time Stop Time Status Last Admin Dose Admin Sodium Chloride 1,000 ml @ 50 mls/hr Q20H IV 06/08/17 15:23 07/08/17 15:22 06/08/17 15:37 50 MLS/HR Medical Decision Patient was seen and evaluated as well. She presents to us today status post fall of unknown cause. The patient was walking with her parents. She was seen here a little over a month ago for stroke. I will first with the patient's past medical history, and have cared for her on a previous visit. On my examination there is no neurologic or vascular deficit change from baseline. She actually has improvement of the right-sided facial droop. At this time I will establish IV access, and pursue a workup over concern for potential stroke despite neurologic evidence only because of the previous stroke that was quite insidious. CT the head is negative for acute process. Bedside EKG is unremarkable, no change compared to previous. Slight leukocytosis, no significant anemia, evidence of kidney or liver failure. Coags reveal slight elevation, but she is on aspirin and Plavix. From triage, there was no temperature therefore this was found to be slightly elevated at 37.5. She is tachycardic at just over 100 bpm. She complains of no fever, and there is no evidence of infection on my exam. The parents were informed that they're to watch for signs of infection, and her to call her family doctor tomorrow to schedule follow-up. I informed him of these vital signs could be baseline, however could be developing infection that is not apparent at this time. I do believe she is stable for outpatient management, and is to return if worsening. She was educated upon worrisome symptoms which to return, had questions by the charge, and was discharged home in good condition. In the evaluation and treatment of this patient, the following differential diagnoses were considered: Concussion, Contrecoup Injury, Brain Tumor, Depression, Encephalitis, Hypothyroidism, Meningitis, CVA, TIA, Migraine, Cluster Headache, Intracranial Abnormality, Intracranial Hemorrhage, Subdural Hematoma, Subarachnoid Hemorrhage, Hydrocephalus. Impression Primary Impression: Fall Additional Impression: Contusion of multiple sites Departure Information Dispostion Home / Self-Care Condition GOOD Referrals Ria Larson M.D. (PCP) Patient Instructions My [facility] Additional Instructions You were seen in the emergency department for a fall. Here the CAT scan of your headache, in your blood work and EKG look great. I recommend following up with your family doctor by calling their office first thing tomorrow morning for recheck. As we discussed, her temperature is slightly elevated here, please watch for symptoms of infection of these are to develop please return immediately. Please return to emergency department with any new/concerning symptoms. Problem Qualifiers
[2017-06-08] MEDS ORDERED: ATOR-26 PO (16:01)
[2017-06-08] MEDS ORDERED: ASPI81TA28 PO (16:02)
[2017-06-08] MEDS ORDERED: CLOP1TAB15 PO (16:03)
[2017-06-08] MEDS ORDERED: LISI-461 PO (16:06)
[2017-06-08] MEDS ORDERED: ARTIOIN11 OPR (16:10)
[2017-06-08 16:11] LABS: URINE APPEARANCE CLEAR (CLEAR); URINE BILIRUBIN NEG (NEG); URINE COLOR YELLOW; URINE NITRITE NEG (NEG); UROBILINOGEN NEG (NEG); ZZUR CULT IF INDIC CLEAN CATCH NO
[2017-06-08 16:14] LABS: MANUAL MICROSCOPIC REQUIRED? NO; REVIEW REQ? NO
--- NOTE | 2017-06-08 16:24 | DIAGNOSTIC IMAGING REPORT ---
HEAD WITHOUT CONTRAST (CT) CLINICAL HISTORY: 22 years-old Female with Stroke. Acute strokelike symptoms. TECHNIQUE: Multiple axial CT images of the head were obtained without contrast. A dose lowering technique was utilized adhering to the principles of ALARA. CT DOSE: 537.48 mGy.cm COMPARISON: MRI brain and CT head 05/07/2017. FINDINGS: 3 ventricular shunt catheters are again noted and are in stable positioning. Right parieto-occipital shunt catheter terminates in the frontal horn. The left parieto-occipital catheter terminates in the third ventricle and lastly, the left frontal catheter terminates near the left lateral ventricle. Encephalomalacia from a prior infarction is again seen involving the left frontal lobe centrum semiovale. There is no acute intracranial hemorrhage, midline shift, hydrocephalus or abnormal extra-axial collections. No territorial ischemia. There is no calvarial fracture. The mastoid air cells and middle ear cavities are clear. Soft tissues are unremarkable. Orbits are symmetric. IMPRESSION: 1. No acute intracranial abnormality. 2. Unchanged positioning of the three ventricular shunt catheters. 3. Encephalomalacia of the left frontal lobe centrum semiovale redemonstrated correlating with remote infarction. No territorial ischemia identified. The above report was generated using voice recognition software. It may contain grammatical, syntax or spelling errors. Electronically signed by: Tolu Kraus M.D. 06/08/2017 4:22 PM Dictated Date/Time: 06/08/2017 4:18 PM
[2017-06-08 16:49] VITALS: TEMP 37.5
[2017-06-08 16:58] VITALS: BP 123/71; PULSE 97; O2SAT 98
== END 2017-06-08 17:16 | disposition home or self-care (01) ==
LOC: C.EDB 15:01 → C.EDC 17:16
DX: T14.8 Other injury of unspecified body region (principal); W19.XXXA Unspecified fall, initial encounter; Y92.9 Unspecified place or not applicable; Y93.01 Activity, walking, marching and hiking; Z86.73 Personal history of transient ischemic attack (TIA), and cerebral infarction without residual deficits; I10 Essential (primary) hypertension; G91.9 Hydrocephalus, unspecified; Z80.9 Family history of malignant neoplasm, unspecified; Z82.49 Family history of ischemic heart disease and other diseases of the circulatory system; Z79.82 Long term (current) use of aspirin; Z79.02 Long term (current) use of antithrombotics/antiplatelets; Z79.899 Other long term (current) drug therapy